=== PATIENT | female | born 1990 | race Caucasian/White ===

== ENCOUNTER 2017-11-29 22:56 | Emergency (ER) | payer OTHER ==
--- NOTE | 2017-11-29 23:17 | ED Physician Documentation ---
PD HPI ABD PAIN - Stated complaint Stated Complaint: ABDOMINAL CRAMPS - Chief complaint Chief Complaint: Abd Pain - History obtained from History obtained from: Patient - History of Present Illness Timing - onset: Today (this afternoon) Timing - details: Gradual onset Pain level now: 6 Quality: Pain Location: All over / everywhere Radiation: Lower back Improved by: Other (no ameliorating factors) Worsened by: Palpation Associated symptoms: Nausea, Vomiting. No: Fever, Diarrhea, Constipation Similar symptoms before: Has not had sx before Recently seen: Not recently seen Review of Systems Constitutional: denies: Fever, Chills, Sweats Cardiac: reports: Reviewed and negative Respiratory: reports: Reviewed and negative GI: reports: Abdominal Pain, Nausea, Vomiting. denies: Constipation, Diarrhea : denies: Dysuria, Frequency Musculoskeletal: reports: Back pain PD PAST MEDICAL HISTORY - Past Medical History Past Medical History: Yes CHHA: Endometriosis - Past Surgical History Past Surgical History: Yes General: Cholecystectomy, Other - Present Medications Home Medications: Ambulatory Orders Medication Instructions Recorded Confirmed Lactobacillus Acidophilus 11/29/17 [Probiotic Acidophilus] oxyCODONE/ACET 5/325 [Percocet 5 1 - 2 each PO Q6H PRN #10 tablet 11/30/17 mg/325 mg] - Allergies Allergies/Adverse Reactions: Allergies Allergy/AdvReac Type Severity Reaction Status Date / Time latex Allergy Itching Verified 11/29/17 23:05 Sulfa (Sulfonamide Allergy Anaphylaxis Verified 11/29/17 23:05 Antibiotics) - Social History Does the pt smoke?: No Smoking Status: Never smoker Does the pt drink ETOH?: No Does the pt have substance abuse?: No - Immunizations Immunizations are current?: Yes - POLST Patient has POLST: No PD ED PE NORMAL - Vitals Vital signs reviewed: Yes - General General: Alert and oriented X 3, Well developed/nourished, Other (appears uncomfortable due to pain) - HEENT HEENT: Moist mucous membranes - Neck Neck: Supple, no meningeal sign - Cardiac Cardiac: RRR, No murmur, No gallop, No rub - Respiratory Respiratory: No respiratory distress, Clear bilaterally - Abdomen Abdomen: Soft, Non distended, Other (diffuse TTP without rebound or guarding; she is crying even before my exam, it is difficult to assess whether she is worse from palpation) - Back Back: No CVA TTP - Derm Derm: Normal color, Warm and dry, No rash Results - Vitals Vitals: Vital Signs - 24 hr 11/29/17 11/29/17 11/29/17 23:00 23:37 23:42 Temperature 36.5 C Heart Rate 75 70 66 Respiratory 24 18 16 Rate Blood Pressure 108/98 H 120/63 120/63 O2 Saturation 99 98 97 11/29/17 11/30/17 23:52 01:33 Temperature Heart Rate 77 72 Respiratory 16 14 Rate Blood Pressure 117/73 100/70 O2 Saturation 96 100 Oxygen O2 Source Room air - Labs Labs: Laboratory Tests 11/29/17 11/29/17 11/29/17 23:05 23:10 23:10 WBC 6.6 RBC 4.31 Hgb 13.2 Hct 38.3 MCV 88.7 MCH 30.7 MCHC 34.6 RDW 13.4 Plt Count 275 MPV 8.5 Neut # 3.4 Lymph # 2.5 [place] # 0.5 Eos # 0.2 Baso # 0.0 Absolute Nucleated RBC 0.00 Nucleated RBC % 0.0 Sodium 137 Potassium 3.3 L Chloride 101 Carbon Dioxide 23 Anion Gap 13.0 BUN 16 Creatinine 0.8 Estimated GFR (MDRD) 85 L Glucose 110 H Calcium 9.5 Total Bilirubin 0.9 AST 20 ALT 17 Alkaline Phosphatase 31 L Total Protein 7.7 Albumin 4.8 Globulin 2.9 Albumin/Globulin Ratio 1.7 Lipase 26 Urine Color YELLOW Urine Clarity CLEAR Urine pH 5.5 Ur Specific [place] >=1.030 H Urine Protein NEGATIVE Urine Glucose (UA) NEGATIVE Urine Ketones 15 H Urine Occult Blood NEGATIVE Urine Nitrite NEGATIVE Urine Bilirubin NEGATIVE Urine Urobilinogen 0.2 (NORMAL) Ur Leukocyte Esterase NEGATIVE Ur Microscopic Review NOT INDICATED Urine Culture Comments NOT INDICATED Urine HCG, Qual NEGATIVE - Rads (name of study) CT A/P Radiology: Prelim report reviewed, See rad report PD MEDICAL DECISION MAKING - ED course Complexity details: reviewed results, re-evaluated patient, considered differential, d/w patient ED course: On reevaluation, patient reports significant improvement after IV fluids and IV dilaudid. Left ovarian cyst on CT, which, on reevaluation, she says is the predominant location of her pain. She says she has had ovarian cysts in the past. I explained that it is unclear whether this is causing her pain, or if this is a coincident finding. However, there are no findings to suggest another diagnosis. Departure - Departure Disposition: 01 Home, Self Care Clinical Impression: Cyst of ovary Qualifiers: Laterality: left Qualified Code(s): N83.202 - Unspecified ovarian cyst, left side Condition: Good Instructions: ED Abdominal Pain Unkn Cause, ED Cyst Ovarian Prescriptions: oxyCODONE/ACET 5/325 [Percocet 5 mg/325 mg] 1 - 2 each PO Q6H PRN #10 tablet PRN Reason: Pain Comments: Follow up with your weeder thinner this week; call to arrange for next available appointment. Discharge Date/Time: 11/30/17 01:57
[2017-11-29 23:23] LABS: BILIRUBIN,URINE NEGATIVE (NEGATIVE); GLUCOSE, URINE (UA) NEGATIVE (NEGATIVE); KETONES,URINE (UA) 15 mg/dL (NEGATIVE); LEUKOCYTE ESTERASE, URINE NEGATIVE (NEGATIVE); NITRITE,URINE NEGATIVE (NEGATIVE); OCCULT BLOOD,URINE NEGATIVE (NEGATIVE); PH,URINE 5.5 PH (5.0-7.5); PROTEIN,URINE NEGATIVE (NEGATIVE); UROBILINOGEN,URINE 0.2 (NORMAL) E.U./dL (NORMAL)
[2017-11-29] MEDS ORDERED: HYDROmorphone 1 MG/ML SYRINGE IVP STA (23:24)
[2017-11-29] MEDS ORDERED: ONDANSETRON 4 MG/2 ML VIAL IVP STA (23:24)
[2017-11-29] MEDS ORDERED: SODIUM CHLORIDE 0.9% 1,000 ML IV STA (23:24)
[2017-11-29 23:25] LABS: BASOPHILS % (AUTO) 0.7 %; EOSINOPHILS # (AUTO) 0.2 10^3/uL (0.0-0.7); EOSINOPHILS % (AUTO) 3.3 %; HGB - HEMOGLOBIN 13.2 g/dL (12.0-16.0); LYMPHOCYTES # (AUTO) 2.5 10^3/uL (1.5-3.5); LYMPHOCYTES % (AUTO) 37.6 %; MEAN CORPUSCULAR HEMOGLOBIN 30.7 pg (27.0-31.0); MEAN CORPUSCULAR HGB CONC 34.6 g/dL (32.0-36.0); MEAN CORPUSCULAR VOLUME 88.7 fL (81.0-99.0); MEAN PLATELET VOLUME 8.5 fL (7.9-10.8); MONOCYTES # (AUTO) 0.5 10^3/uL (0.0-1.0); MONOCYTES % (AUTO) 7.1 %; NEUTROPHILS # (AUTO) 3.4 10^3/uL (1.5-6.6); NEUTROPHILS % (AUTO) 51.3 %; PLT - PLATELET COUNT 275 10^3/uL (130-450); RED BLOOD COUNT 4.31 10^6/uL (4.20-5.40); RED CELL DISTRIBUTION WIDTH 13.4 % (12.0-15.0); WHITE BLOOD COUNT 6.6 x10^3/uL (4.8-10.8)
[2017-11-29 23:26] LABS: CLARITY,URINE CLEAR (CLEAR); HCG UR QUAL NEGATIVE
[2017-11-29 23:34] LABS: ALBUMIN 4.8 g/dL (3.2-5.5); ALBUMIN/GLOBULIN RATIO 1.7 (1.0-2.2); BILIRUBIN,TOTAL 0.9 mg/dL (0.2-1.0); CALCIUM 9.5 mg/dL (8.5-10.3); CREATININE 0.8 mg/dL (0.4-1.0); TOTAL PROTEIN 7.7 g/dL (6.7-8.2)
[2017-11-29] MEDS ORDERED: IOPAMIDOL-300 100 ML VIAL ONE (23:54)
[2017-11-30] MEDS ORDERED: IOPAMIDOL-300 100 ML VIAL IVP ONE (00:20)
--- NOTE | 2017-11-30 00:35 | CT Preliminary Report ---
Exam: CT ABDOMEN/PELVIS W/ IMPRESSION: 1. No acute inflammatory or obstructive process seen in the abdomen or pelvis. 2. Left ovarian 4.5 cm benign-appearing cyst. Doubt acute complication. This does not require sonogra phic follow-up per ACR criteria unless clinically indicated. 3. Moderate right colonic stool burden. 4. Previous cholecystectomy. [facility] SITE ID: [id number]
--- NOTE | 2017-11-30 00:39 | CT Report ---
EXAM: CT ABDOMEN AND PELVIS EXAM DATE: 11/30/2017 12:21 AM. CLINICAL HISTORY: Abdominal pain. COMPARISONS: None. TECHNIQUE: Routine helical CT imaging was performed through the abdomen and pelvis. IV contrast: 100 mL Isovue 300. Enteric contrast: No . Reconstructions: Coronal and sagittal. In accordance with CT protocol optimization, one or more of the following dose reduction techniques w ere utilized for this exam: automated exposure control, adjustment of mA and/or KV based on patient s ize, or use of iterative reconstructive technique. FINDINGS: Lung Bases: Unremarkable. Liver: Unremarkable. No suspicious masses. Gallbladder/Bile Ducts: Unremarkable post-cholecystectomy. Spleen: Unremarkable. Pancreas: Unremarkable. Adrenal Glands: Unremarkable. Kidneys: Unremarkable. No suspicious masses or hydronephrosis. Peritoneal Cavity/Bowel: No bowel obstruction or inflammatory process seen. No free air or significan t free fluid. No masses or adenopathy. The appendix is not seen but there is no evidence of appendici tis. Moderate right colonic stool burden. Pelvic Organs: Bladder, uterus, and adnexa appear unremarkable with exception of a 38 x 39 x 46 mm be nign-appearing left ovarian cyst and a much smaller right ovarian cyst. Doubt acute complication wit h no twisting of the vascular pedicle seen on either side. Vasculature: No aneurysms or other significant abnormality. Bones: No significant abnormality. Other: None. IMPRESSION: 1. No acute inflammatory or obstructive process seen in the abdomen or pelvis. 2. Left ovarian 4.5 cm benign-appearing cyst. Doubt acute complication. This does not require sonogra phic follow-up per ACR criteria unless clinically indicated. 3. Moderate right colonic stool burden. 4. Previous cholecystectomy. [facility] Referring Provider Line: [phone] SITE ID: [id number]
[2017-11-30 01:35] VITALS: BP 100/70
[2017-11-30] MEDS ORDERED: oxyCODONE/ACET 5/325 Prepack 4 PO STA (01:44)
== END 2017-11-30 01:57 | disposition home or self-care (01) ==
LOC: ED 22:56
DX: N83.202 Unspecified ovarian cyst, left side (principal)
CPT/HCPCS: 36415; 74177; 80053; 81003; 81025; 83690; 85025; 96361; 96374; 96375; 99284; J1170; Q9967; 81001; 87086

== ENCOUNTER 2018-01-20 04:29 | Emergency (ER) | payer OTHER ==
[2018-01-20] MEDS ORDERED: ONDANSETRON 4 MG/2 ML VIAL IVP STA (05:03)
[2018-01-20] MEDS ORDERED: SODIUM CHLORIDE 0.9% 1,000 ML IV ONE (05:03)
[2018-01-20 05:05] LABS: BASOPHILS % (AUTO) 0.2 %; EOSINOPHILS # (AUTO) 0.2 10^3/uL (0.0-0.7); EOSINOPHILS % (AUTO) 1.3 %; HGB - HEMOGLOBIN 13.2 g/dL (12.0-16.0); LYMPHOCYTES # (AUTO) 0.6 10^3/uL (1.5-3.5); LYMPHOCYTES % (AUTO) 4.6 %; MEAN CORPUSCULAR HEMOGLOBIN 29.9 pg (27.0-31.0); MEAN CORPUSCULAR HGB CONC 33.2 g/dL (32.0-36.0); MEAN CORPUSCULAR VOLUME 90.3 fL (81.0-99.0); MEAN PLATELET VOLUME 8.3 fL (7.9-10.8); MONOCYTES # (AUTO) 0.8 10^3/uL (0.0-1.0); MONOCYTES % (AUTO) 6.3 %; NEUTROPHILS # (AUTO) 11.4 10^3/uL (1.5-6.6); NEUTROPHILS % (AUTO) 87.6 %; PLT - PLATELET COUNT 264 10^3/uL (130-450); RED BLOOD COUNT 4.42 10^6/uL (4.20-5.40); RED CELL DISTRIBUTION WIDTH 13.4 % (12.0-15.0); WHITE BLOOD COUNT 13.1 x10^3/uL (4.8-10.8)
[2018-01-20 05:14] LABS: ALBUMIN 4.3 g/dL (3.2-5.5); ALBUMIN/GLOBULIN RATIO 1.5 (1.0-2.2); BILIRUBIN,TOTAL 0.4 mg/dL (0.2-1.0); CALCIUM 8.2 mg/dL (8.5-10.3); CREATININE 0.7 mg/dL (0.4-1.0); TOTAL PROTEIN 7.1 g/dL (6.7-8.2)
[2018-01-20] MEDS ORDERED: ONDANSETRON 4 MG/2 ML VIAL ONE (05:14)
--- NOTE | 2018-01-20 05:30 | ED Physician Documentation ---
PD HPI NVD - Stated complaint Stated Complaint: VOMITING - Chief complaint Chief Complaint: Abd Pain - History obtained from History obtained from: Patient, Family - History of Present Illness Timing - onset: Enter time (1000), Yesterday Timing - duration: Days (1) Timing - details: Gradual onset, Still present Associated symptoms: Abdominal pain, Loss of appetite Contributing factors: Bad food Improved by: Laying still Similar symptoms before: Has not had sx before Recently seen: Not recently seen - Additonal information Additional information: 27-year-old female with a history of endometriosis has developed acute diarrheal illness yesterday morning after eating at [employer]. She has not had anything to eat the rest of the day and about 10 PM she developed vomiting as well she has had uncontrolled vomiting throughout the night. She has not been able to sleep and she has had vomiting as frequently as every 5-10 minutes. She has some soreness to her ribs from all of the retching. 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 - Past Surgical History Past Surgical History: Yes General: Cholecystectomy, Other - Present Medications Home Medications: Ambulatory Orders Medication Instructions Recorded Confirmed Lactobacillus Acidophilus 11/29/17 [Probiotic Acidophilus] oxyCODONE/ACET 5/325 [Percocet 5 1 - 2 each PO Q6H PRN #10 tablet 11/30/1701/20 mg/325 mg] Fluticasone [Flonase] 1 sprays NS DAILY 01/20/18 01/20/18 Ondansetron Odt [Zofran] 4 mg TL Q6H PRN #10 tablet 01/20/18 - Allergies Allergies/Adverse Reactions: Allergies Allergy/AdvReac Type Severity Reaction Status Date / Time latex Allergy Itching Verified 01/20/18 04:38 Sulfa (Sulfonamide Allergy Anaphylaxis Verified 01/20/18 04:38 Antibiotics) - Social History Does the pt smoke?: No Smoking Status: Never smoker Does the pt drink ETOH?: No Does the pt have substance abuse?: No - Immunizations Immunizations are current?: Yes - POLST Patient has POLST: No PD ED PE NORMAL - Vitals Vital signs reviewed: Yes (tachy and diastolic hypertension ) - General General: Alert and oriented X 3, No acute distress, Well developed/nourished - HEENT HEENT: Atraumatic, PERRL, EOMI - Neck Neck: Supple, no meningeal sign, No bony TTP - Cardiac Cardiac: No murmur, Other (tachy and regular ) - Respiratory Respiratory: No respiratory distress, Clear bilaterally - Abdomen Abdomen: Soft, Other (epigastric and lower rib pain to palpation. There is lower abdominal pain over the pelvic brim bilaterally that she states is her chronic endometrial pain. ) - Back Back: No CVA TTP, No spinal TTP - Derm Derm: Normal color, Warm and dry, No rash - Extremities Extremities: No deformity, No edema - Neuro Neuro: Alert and oriented X 3, No motor deficit, No sensory deficit, Normal speech Eye Opening: Spontaneous Motor: Obeys Commands Verbal: Oriented GCS Score: 15 - Psych Psych: Normal mood, Normal affect Results - Vitals Vitals: Vital Signs - 24 hr 01/20/18 01/20/18 01/20/18 04:30 05:20 05:50 Temperature 36.2 C L 37.0 C Heart Rate 101 H 91 98 Respiratory 18 18 17 Rate Blood Pressure 105/81 H 129/85 H 123/79 O2 Saturation 98 100 100 01/20/18 01/20/18 06:08 06:48 Temperature 36.3 C L Heart Rate 94 87 Respiratory 16 16 Rate Blood Pressure 116/72 121/85 H O2 Saturation 96 99 Oxygen O2 Source Room air - Labs Labs: Laboratory Tests 01/20/18 01/20/18 01/20/18 04:54 04:54 06:45 WBC 13.1 H RBC 4.42 Hgb 13.2 Hct 39.9 MCV 90.3 MCH 29.9 MCHC 33.2 RDW 13.4 Plt Count 264 MPV 8.3 Neut # 11.4 H Lymph # 0.6 L [place] # 0.8 Eos # 0.2 Baso # 0.0 Absolute Nucleated RBC 0.00 Nucleated RBC % 0.0 Sodium 138 Potassium 3.6 Chloride 107 Carbon Dioxide 25 Anion Gap 6.0 BUN 20 Creatinine 0.7 Estimated GFR (MDRD) 99 Glucose 110 H Calcium 8.2 L Total Bilirubin 0.4 AST 17 ALT 21 Alkaline Phosphatase 34 L Total Protein 7.1 Albumin 4.3 Globulin 2.8 Albumin/Globulin Ratio 1.5 Lipase 29 Urine Color YELLOW Urine Clarity CLEAR Urine pH 5.5 Ur Specific [place] >=1.030 H Urine Protein NEGATIVE Urine Glucose (UA) NEGATIVE Urine Ketones NEGATIVE Urine Occult Blood NEGATIVE Urine Nitrite NEGATIVE Urine Bilirubin NEGATIVE Urine Urobilinogen 0.2 (NORMAL) Ur Leukocyte Esterase NEGATIVE Ur Microscopic Review NOT INDICATED Urine HCG, Qual 01/20/18 06:45 WBC RBC Hgb Hct MCV MCH MCHC RDW Plt Count MPV Neut # Lymph # [place] # Eos # Baso # Absolute Nucleated RBC Nucleated RBC % Sodium Potassium Chloride Carbon Dioxide Anion Gap BUN Creatinine Estimated GFR (MDRD) Glucose Calcium Total Bilirubin AST ALT Alkaline Phosphatase Total Protein Albumin Globulin Albumin/Globulin Ratio Lipase Urine Color Urine Clarity Urine pH Ur Specific [place] >=1.030 H Urine Protein Urine Glucose (UA) Urine Ketones Urine Occult Blood Urine Nitrite Urine Bilirubin Urine Urobilinogen Ur Leukocyte Esterase Ur Microscopic Review Urine HCG, Qual NEGATIVE Procedures - IVC sono (time) 0525 Bedside IVC sono: IVC measures (cm) (1.07), IVC collapsed c insp (cm) (complete) , Dehydration (mild est 1 liter.) PD MEDICAL DECISION MAKING - ED course Complexity details: reviewed old records, reviewed results, re-evaluated patient , considered differential, d/w patient, d/w family ED course: 27 y/o female with acute vomiting and diarrhea has prompt improvement with IV zofran. She is found to be dehydrated by interrogation of the IVC and she is administered saline as well. Departure - Departure Disposition: 01 Home, Self Care Clinical Impression: Gastroenteritis Condition: Stable Instructions: ED Gastroenteritis Viral Follow-Up: CURT Mcclain [Provider Group] Prescriptions: Ondansetron Odt [Zofran] 4 mg TL Q6H PRN #10 tablet PRN Reason: Nausea / Vomiting
[2018-01-20] MEDS ORDERED: HYDROmorphone 1 MG/ML CARPUJECT IVP STA (05:48)
[2018-01-20 06:49] VITALS: BP 121/85
[2018-01-20 06:58] LABS: BILIRUBIN,URINE NEGATIVE (NEGATIVE); GLUCOSE, URINE (UA) NEGATIVE (NEGATIVE); KETONES,URINE (UA) NEGATIVE (NEGATIVE); LEUKOCYTE ESTERASE, URINE NEGATIVE (NEGATIVE); NITRITE,URINE NEGATIVE (NEGATIVE); OCCULT BLOOD,URINE NEGATIVE (NEGATIVE); PH,URINE 5.5 PH (5.0-7.5); PROTEIN,URINE NEGATIVE (NEGATIVE); UROBILINOGEN,URINE 0.2 (NORMAL) E.U./dL (NORMAL)
[2018-01-20 06:59] LABS: CLARITY,URINE CLEAR (CLEAR); HCG UR QUAL NEGATIVE
== END 2018-01-20 07:37 | disposition home or self-care (01) ==
LOC: ED 04:29
DX: K52.9 Noninfective gastroenteritis and colitis, unspecified (principal); E86.0 Dehydration; Z87.42 Personal history of other diseases of the female genital tract
CPT/HCPCS: 36415; 80053; 81003; 81025; 83690; 85025; 96361; 96374; 96375; 99284; J1170; 81001

== ENCOUNTER 2018-05-28 15:47 | Emergency (ER) | payer OTHER ==
[2018-05-28] MEDS ORDERED: SODIUM CHLORIDE 0.9% 1,000 ML IV ONE (17:18)
[2018-05-28] MEDS ORDERED: ONDANSETRON 4 MG/2 ML VIAL IVP STA (17:18)
[2018-05-28] MEDS ORDERED: IOPAMIDOL-300 100 ML VIAL ONE (17:20)
[2018-05-28 17:32] LABS: BASOPHILS % (AUTO) 0.4 %; EOSINOPHILS # (AUTO) 0.4 10^3/uL (0.0-0.7); EOSINOPHILS % (AUTO) 7.7 %; HGB - HEMOGLOBIN 12.6 g/dL (12.0-16.0); LYMPHOCYTES # (AUTO) 1.4 10^3/uL (1.5-3.5); MEAN CORPUSCULAR HEMOGLOBIN 30.7 pg (27.0-31.0); MEAN CORPUSCULAR HGB CONC 33.9 g/dL (32.0-36.0); MEAN CORPUSCULAR VOLUME 90.6 fL (81.0-99.0); MONOCYTES # (AUTO) 0.3 10^3/uL (0.0-1.0); MONOCYTES % (AUTO) 6.5 %; NEUTROPHILS # (AUTO) 2.8 10^3/uL (1.5-6.6); NEUTROPHILS % (AUTO) 57.4 %; PLT - PLATELET COUNT 247 10^3/uL (130-450); RED BLOOD COUNT 4.11 10^6/uL (4.20-5.40); RED CELL DISTRIBUTION WIDTH 12.9 % (12.0-15.0); WHITE BLOOD COUNT 4.9 x10^3/uL (4.8-10.8)
[2018-05-28] MEDS: HYDROmorphone 1 MG/ML CARPUJECT IVP STA (17:38)
[2018-05-28 17:45] LABS: ALBUMIN 4.1 g/dL (3.2-5.5); ALBUMIN/GLOBULIN RATIO 1.3 (1.0-2.2); BILIRUBIN,TOTAL 1.1 mg/dL (0.2-1.0); CALCIUM 8.9 mg/dL (8.5-10.3); CREATININE 0.7 mg/dL (0.4-1.0); TOTAL PROTEIN 7.2 g/dL (6.7-8.2)
[2018-05-28] MEDS ORDERED: IOPAMIDOL-300 100 ML VIAL IVP ONE (18:21)
--- NOTE | 2018-05-28 18:52 | CT Report ---
Reason: increased abdominal pain Procedure Date: 05/28/2018 Accession Number: [id number] / [id number] Procedure: CT - Abdomen/Pelvis W/ CPT Code: FULL RESULT: EXAM: CT ABDOMEN AND PELVIS EXAM DATE: 05/28/2018 06:20 PM. CLINICAL HISTORY: Hysterectomy 05/24/2018. Abdominal pain. Unable to have bowel movement. No trauma. COMPARISONS: CT of the abdomen and pelvis with contrast 11/30/2017. TECHNIQUE: Routine helical CT imaging was performed through the abdomen and pelvis. IV contrast: 100 mL Isovue 300. Enteric contrast: No. Reconstructions: Coronal and sagittal. In accordance with CT protocol optimization, one or more of the following dose reduction techniques were utilized for this exam: automated exposure control, adjustment of mA and/or KV based on patient size, or use of iterative reconstructive technique. FINDINGS: Lung Bases: Unremarkable. Liver: The dome of the liver is incompletely included on the exam. Imaged portion is unremarkable, specifically without suspicious focal lesion. Gallbladder/Bile Ducts: Post cholecystectomy. No abnormal biliary ductal dilatation. Spleen: Normal. Pancreas: Normal. Adrenal Glands: Normal. Kidneys: Normal. No masses or hydronephrosis. Peritoneal Cavity/Bowel: Small amount of pneumoperitoneum predominating in the upper abdomen, not unexpected given history of recent hysterectomy. Minimal free fluid in the pelvis, likely postsurgical. No rim-enhancing fluid collection to suggest abscess. Stomach and small bowel are unremarkable, specifically without evidence of inflammation or obstruction. Appendix not seen but no secondary signs of acute appendicitis. The colon is minimally dilated throughout its course with liquid stool present proximally and semi-formed stool present in the distal descending colon through rectum with gas present at the rectal vault. No evidence of a mass, inflammation or obstruction by imaging. No significant stool ball at the rectal vault. Pelvic Organs: Trace gas within the urinary bladder, possibly postsurgical depending on timing. Alternatively finding could be due to a nonvisualized fistula. Query recent catheterization. Postsurgical changes in the pelvis in keeping with hysterectomy. The ovaries are not discretely visualized but no adnexal mass demonstrated. Vasculature: No aneurysms or other significant abnormality. Bones: No significant abnormality. Other: Gas within the abdominal wall at the umbilicus and right lower quadrant, likely related to recent trocar placement and surgery. No evidence of abdominal wall abscess or hematoma. IMPRESSION: 1. Predominantly liquid stool present throughout the minimally dilated colon without evidence of mass, stricture or other cause of obstruction. No significant stool at the rectal vault. Finding likely due to ileus given recent surgery. No evidence of a small bowel obstruction. 2. Trace gas within the urinary bladder, possibly due to recent instrumentation. However, a nonvisualized fistula could also cause this appearance. 3. Small volume pneumoperitoneum and trace free fluid in keeping with recent surgery. No evidence of abscess. [facility] The above findings were discussed with Parviz Manning by Dr. Francisco Flood at 18:50 hrs on 05/28/18.
[2018-05-28 20:23] LABS: BILIRUBIN,URINE NEGATIVE (NEGATIVE); GLUCOSE, URINE (UA) NEGATIVE (NEGATIVE); KETONES,URINE (UA) NEGATIVE (NEGATIVE); LEUKOCYTE ESTERASE, URINE NEGATIVE (NEGATIVE); NITRITE,URINE NEGATIVE (NEGATIVE); OCCULT BLOOD,URINE NEGATIVE (NEGATIVE); PROTEIN,URINE NEGATIVE (NEGATIVE); UROBILINOGEN,URINE 0.2 (NORMAL) E.U./dL (NORMAL)
[2018-05-28 20:26] LABS: CLARITY,URINE CLEAR (CLEAR)
[2018-05-28] MEDS ORDERED: ACETAMINOPHEN 500 MG TABLET PO STA (21:38)
[2018-05-28] MEDS ORDERED: KETOROLAC 60 MG/2 ML VIAL IVP STA (21:38)
[2018-05-28 22:03] VITALS: BP 129/70
--- NOTE | 2018-05-28 22:22 | ED Physician Documentation ---
PD HPI ABD PAIN - Stated complaint Stated Complaint: FEMALE - Chief complaint Chief Complaint: Abd Pain - Additional information Additional information: 27-year-old female presents the emergency department with increasing generalized abdominal pain and No bowel movements since her surgery on Thursday. The patient is status post a complete hysterectomy secondary to endometriosis. Since returning home the patient has not had a bowel movement and has had increasing abdominal pain and nausea. The patient has been taking her bowel regiment as prescribed. No focal area of pain. No fevers or chills. The patient is nauseous but no vomiting and has had decreased oral intake. No other associated symptoms. Review of Systems Constitutional: reports: Chills, Fatigue. denies: Fever Eyes: denies: Discharge Ears: denies: Ear pain Nose: denies: Congestion Throat: denies: Sore throat Cardiac: denies: Chest pain / pressure Respiratory: denies: Dyspnea GI: reports: Abdominal Pain, Nausea, Constipation : denies: Dysuria Skin: denies: Rash Musculoskeletal: denies: Neck pain Neurologic: denies: Generalized weakness, Altered mental status Immunocompromised: denies: Chemotherapy PD PAST MEDICAL HISTORY - Past Medical History REPA[employer]: Endometriosis - Past Surgical History Past Surgical History: Yes General: Cholecystectomy, Other - Present Medications Home Medications: Ambulatory Orders Medication Instructions Recorded Confirmed Lactobacillus Acidophilus 11/29/17 [Probiotic Acidophilus] oxyCODONE/ACET 5/325 [Percocet 5 1 - 2 each PO Q6H PRN #10 tablet 11/30/1701/20 mg/325 mg] Fluticasone [Flonase] 1 sprays NS DAILY 01/20/18 01/20/18 Ondansetron Odt [Zofran] 4 mg TL Q6H PRN #10 tablet 01/20/18 - Allergies Allergies/Adverse Reactions: Allergies Allergy/AdvReac Type Severity Reaction Status Date / Time banana Allergy Respiratory Verified 05/28/18 16:18 latex Allergy Itching Verified 01/20/18 04:38 Sulfa (Sulfonamide Allergy Anaphylaxis Verified 01/20/18 04:38 Antibiotics) - Social History Does the pt smoke?: No Smoking Status: Never smoker Does the pt drink ETOH?: No Does the pt have substance abuse?: No - Immunizations Immunizations are current?: Yes - POLST Patient has POLST: No PD ED PE NORMAL - General General: Alert and oriented X 3, No acute distress - HEENT HEENT: Atraumatic, PERRL, EOMI, Ears normal - Neck Neck: Supple, no meningeal sign - Cardiac Cardiac: RRR, Strong equal pulses - Respiratory Respiratory: No respiratory distress, Clear bilaterally - Abdomen Abdomen: Soft. No: Non tender (The patient has generalized tenderness, mild distention. No rebound or peritoneal signs), Non distended - Derm Derm: Normal color, No rash - Extremities Extremities: No deformity, No edema - Neuro Neuro: Alert and oriented X 3, Normal speech - Psych Psych: Normal affect Results - Vitals Vitals: Vital Signs - 24 hr 05/28/18 05/28/18 05/28/18 16:13 18:52 20:13 Temperature 36.9 C 36.9 C 36.4 C L Heart Rate 88 66 77 Respiratory 16 16 18 Rate Blood Pressure 128/78 117/80 122/86 H O2 Saturation 98 98 97 05/28/18 22:02 Temperature 36.2 C L Heart Rate 75 Respiratory 12 Rate Blood Pressure 129/70 O2 Saturation 100 Oxygen O2 Source Room air - Labs Labs: Laboratory Tests 05/28/18 05/28/18 05/28/18 17:25 17:25 Unknown WBC 4.9 RBC 4.11 L Hgb 12.6 Hct 37.2 MCV 90.6 MCH 30.7 MCHC 33.9 RDW 12.9 Plt Count 247 MPV 8.0 Neut # (Auto) 2.8 Lymph # (Auto) 1.4 L [place] # (Auto) 0.3 Eos # (Auto) 0.4 Baso # (Auto) 0.0 Absolute Nucleated RBC 0.00 Nucleated RBC % 0.0 Sodium 137 Potassium 3.9 Chloride 100 L Carbon Dioxide 30 Anion Gap 7.0 BUN 9 Creatinine 0.7 Estimated GFR (MDRD) 99 Glucose 91 Calcium 8.9 Total Bilirubin 1.1 H AST 70 H ALT 92 H Alkaline Phosphatase 66 Total Protein 7.2 Albumin 4.1 Globulin 3.1 Albumin/Globulin Ratio 1.3 Lipase 34 Urine Color YELLOW Urine Clarity CLEAR Urine pH 8.0 H Ur Specific [place] 1.010 Urine Protein NEGATIVE Urine Glucose (UA) NEGATIVE Urine Ketones NEGATIVE Urine Occult Blood NEGATIVE Urine Nitrite NEGATIVE Urine Bilirubin NEGATIVE Urine Urobilinogen 0.2 (NORMAL) Ur Leukocyte Esterase NEGATIVE Ur Microscopic Review NOT INDICATED Urine Culture Comments NOT INDICATED - Rads (name of study) CT abd/pelvis Radiology: Final report received (IMPRESSION: 1. Predominantly liquid stool present throughout the minimally dilated colon without evidence of mass, stricture or other cause of obstruction. No significant stool at the rectal vault. Finding likely due to ileus given recent surgery. No evidence of a small bowel obstruction 2. Trace gas within the urinary bladder, possibly due to recent instrumentation. However, a nonvisualized fistula could also cause this appearance. 3. Small volume pneumoperitoneum and trace free fluid in keeping with recent surgery. No evidence of abscess. ) PD MEDICAL DECISION MAKING - ED course ED course: The case was discussed with the patient's surgeon from [place] Dr. Yung. I discussed with him the patient's presentation and CT findings. Currently, he does not feel that this represents a fistula and would be too early for fistula. The patient reports that he put Surgicel in that area and that most likely is the surgical finding. He will follow the patient up as an outpatient. Regarding the obstipation he agrees with the plan for admission. Currently, he sees no indication for any surgical intervention The case was discussed with the hospitalist Dr. Rosario who after reviewing the patient's workup refuses to admission to our hospital because she feels that the patient is a postoperative complication and not appropriate first facility. During the patient's hospital course she improved and had multiple bowel movements, the patient was tolerating fluids and food. Currently, since the patient's ileus seems to have resolved transfer to [place] does not seem appropriate. The patient probably would still benefit from observation but the hospitalist has declined this. The patient will be discharged home. I discussed warning signs and recommended returning to the emergency department immediately for worsening or any concerns. - Sepsis Event Vital Signs: Vital Signs - 24 hr 05/28/18 05/28/18 05/28/18 16:13 18:52 20:13 Temperature 36.9 C 36.9 C 36.4 C L Heart Rate 88 66 77 Respiratory 16 16 18 Rate Blood Pressure 128/78 117/80 122/86 H O2 Saturation 98 98 97 05/28/18 22:02 Temperature 36.2 C L Heart Rate 75 Respiratory 12 Rate Blood Pressure 129/70 O2 Saturation 100 Oxygen O2 Source Room air Departure - Departure Disposition: 01 Home, Self Care Clinical Impression: Obstipation, Abnormal CT of the abdomen Abdominal pain Qualifiers: Abdominal location: unspecified location Qualified Code(s): R10.9 - Unspecified abdominal pain Condition: Good Instructions: Abdominal Pain, ED Constipation Follow-Up: Calixto Yung MD [Physician No Access] - Comments: Please follow-up with your HEALTH UNDERWRITER for further workup of the findings seen on CT scan. Please return to the emergency department immediately for worsening or any concerns. Discharge Date/Time: 05/28/18 22:54
== END 2018-05-28 22:54 | disposition home or self-care (01) ==
LOC: ED 15:47
DX: K59.00 Constipation, unspecified (principal); R10.9 Unspecified abdominal pain; R93.5 Abnormal findings on diagnostic imaging of other abdominal regions, including retroperitoneum
CPT/HCPCS: 36415; 74177; 80053; 81003; 83690; 85025; 96361; 96374; 96375; 99283; 99284; A9270; J1170; Q9967; 81001; 87086

== ENCOUNTER 2018-05-31 09:51 | Emergency (ER) | payer OTHER ==
--- NOTE | 2018-05-31 11:04 | ED Physician Documentation ---
PD HPI ABD PAIN - Stated complaint Stated Complaint: FEVER,ABD PX, DIZZY-STATUS POST SURGERY - Chief complaint Chief Complaint: General - History obtained from History obtained from: Patient - History of Present Illness Timing - onset: Last night (surgery a week ago and was having some pelvic pains and continued vaginal bleeding. Had had constipation which is improved. Had increased pelvic pain last night into today, some dysuria, and fever last night. No redness nor discharge at the abd incision sites.), Yesterday Timing - details: Gradual onset, Waxing and waning Quality: Cramping, Aching, Pain Location: Suprapubic, LLQ Radiation: Lower back Improved by: No: Eating Worsened by: Moving, Palpation. No: Eating, Breathing Associated symptoms: Fever, Nausea, Dysuria, Vaginal bleeding. No: Hematemesis , Melena, Hematochezia, Hematuria, Vaginal dc Recently seen: Emergency Dept (2 days ago, with labs and CT done, without acute findings (suggestion of a fistula to bladder vs postop residual air.), Surgery Review of Systems Constitutional: reports: Fever (100.8 last night; no fever today.), Fatigue. denies: Chills, Myalgias Nose: denies: Rhinorrhea / runny nose, Congestion Throat: denies: Sore throat Respiratory: denies: Cough GI: reports: Abdominal Pain (lower abd), Nausea, Constipation (few days ago but has had BMs since having stool softeners/laxatives.). denies: Vomiting, Diarrhea : reports: Dysuria (since yesterday), Vaginal bleeding (since surgery a week ago). denies: Frequency, Discharge Skin: denies: Rash, Lesions Musculoskeletal: denies: Neck pain, Back pain PD PAST MEDICAL HISTORY - Past Medical History Cardiovascular: None Respiratory: None Neuro: None PSYCH ARNP: Endometriosis - Past Surgical History Past Surgical History: Yes General: Cholecystectomy, Other - Present Medications Home Medications: Ambulatory Orders Medication Instructions Recorded Confirmed Lactobacillus Acidophilus 11/29/17 [Probiotic Acidophilus] oxyCODONE/ACET 5/325 [Percocet 5 1 - 2 each PO Q6H PRN #10 tablet 11/30/1701/20 mg/325 mg] Fluticasone [Flonase] 1 sprays NS DAILY 01/20/18 01/20/18 Ondansetron Odt [Zofran] 4 mg TL Q6H PRN #10 tablet 01/20/18 Naproxen [Naprosyn] 500 mg PO BID #20 tablet 05/31/18 Ondansetron HCl [Zofran] 4 mg PO Q6H PRN #20 tablet 05/31/18 - Allergies Allergies/Adverse Reactions: Allergies Allergy/AdvReac Type Severity Reaction Status Date / Time banana Allergy Respiratory Verified 05/28/18 16:18 latex Allergy Itching Verified 01/20/18 04:38 Sulfa (Sulfonamide Allergy Anaphylaxis Verified 01/20/18 04:38 Antibiotics) - Social History Does the pt smoke?: No Smoking Status: Never smoker Does the pt drink ETOH?: No Does the pt have substance abuse?: No - Immunizations Immunizations are current?: Yes - POLST Patient has POLST: No PD ED PE NORMAL - Vitals Vital signs reviewed: Yes - General General: Alert and oriented X 3, Well developed/nourished, Other (appears uncomfortable. ) - HEENT HEENT: Pharynx benign - Neck Neck: Supple, no meningeal sign, No adenopathy - Cardiac Cardiac: RRR, No murmur - Respiratory Respiratory: Clear bilaterally - Abdomen Abdomen: Normal bowel sounds, Soft, Non distended, No organomegaly, Other ( tender suprapubic and lower abd without percussion nor rebound tenderness. ) - Female Female : Deferred - Rectal Rectal: Deferred - Back Back: No CVA TTP - Derm Derm: Normal color, Warm and dry - Extremities Extremities: No deformity, No tenderness to palpate, Normal ROM s pain, No edema , No calf tenderness / cord - Neuro Neuro: Alert and oriented X 3, No motor deficit, Normal speech Results - Vitals Vitals: Oxygen O2 Source Room air - Labs Labs: Microbiology 05/31/18 10:50 Urine Culture - Final Urine,Clean Catch 10-50,000 COLONIES/ML Polymicrobial growth including potential pathogens. This is suggestive of skin or other contamination. Laboratory Tests 05/31/18 05/31/18 05/31/18 10:50 12:00 12:00 WBC 9.8 RBC 3.97 L Hgb 12.2 Hct 35.8 L MCV 90.0 MCH 30.6 MCHC 34.0 RDW 12.9 Plt Count 248 MPV 8.3 Neut # (Auto) 8.1 H Lymph # (Auto) 0.7 L [place] # (Auto) 0.5 Eos # (Auto) 0.4 Baso # (Auto) 0.0 Absolute Nucleated RBC 0.00 Nucleated RBC % 0.0 Sodium 134 L Potassium 3.7 Chloride 98 L Carbon Dioxide 25 Anion Gap 11.0 BUN 13 Creatinine 0.8 Estimated GFR (MDRD) 85 L Glucose 92 Lactic Acid Calcium 9.0 Total Bilirubin 1.0 AST 32 ALT 125 H Alkaline Phosphatase 90 Total Protein 7.5 Albumin 4.1 Globulin 3.4 Albumin/Globulin Ratio 1.2 Lipase 33 Urine Color YELLOW Urine Clarity CLEAR Urine pH 6.0 Ur Specific [place] 1.010 Urine Protein NEGATIVE Urine Glucose (UA) NEGATIVE Urine Ketones NEGATIVE Urine Occult Blood TRACE-LYSE Urine Nitrite NEGATIVE Urine Bilirubin NEGATIVE Urine Urobilinogen 0.2 (NORMAL) Ur Leukocyte Esterase TRACE H Urine RBC 0-5 Urine WBC 0-3 Ur Squamous Epith Cells FEW Squamous Urine Bacteria Rare Ur Microscopic Review INDICATED Urine Culture Comments INDICATED 05/31/18 12:00 WBC RBC Hgb Hct MCV MCH MCHC RDW Plt Count MPV Neut # (Auto) Lymph # (Auto) [place] # (Auto) Eos # (Auto) Baso # (Auto) Absolute Nucleated RBC Nucleated RBC % Sodium Potassium Chloride Carbon Dioxide Anion Gap BUN Creatinine Estimated GFR (MDRD) Glucose Lactic Acid 0.8 Calcium Total Bilirubin AST ALT Alkaline Phosphatase Total Protein Albumin Globulin Albumin/Globulin Ratio Lipase Urine Color Urine Clarity Urine pH Ur Specific [place] Urine Protein Urine Glucose (UA) Urine Ketones Urine Occult Blood Urine Nitrite Urine Bilirubin Urine Urobilinogen Ur Leukocyte Esterase Urine RBC Urine WBC Ur Squamous Epith Cells Urine Bacteria Ur Microscopic Review Urine Culture Comments - Rads (name of study) pelvic U/S Radiology: Prelim report reviewed (no free fluid. No reproductive structures. ) PD MEDICAL DECISION MAKING - ED course Complexity details: reviewed results (no signs of internal fluid/free fluid, and normal labs, afebrile. ), re-evaluated patient (improved symptoms), considered differential, d/w patient, d/w PMD (Dr. Seo, PSYCH ARNP, who was satisfied with tests, and will see patient this week in office for follow up. ) - Sepsis Event Vital Signs: Oxygen O2 Source Room air Departure - Departure Disposition: 01 Home, Self Care Clinical Impression: Status post hysterectomy with oophorectomy, Pelvic pain Record reviewed to determine appropriate education?: Yes Follow-Up: Calixto Seo MD [Physician No Access] - Prescriptions: Naproxen [Naprosyn] 500 mg PO BID #20 tablet Ondansetron HCl [Zofran] 4 mg PO Q6H PRN #20 tablet PRN Reason: Nausea / Vomiting Comments: There is no signs of infection or internal bleeding based on your tests right now. There is not an obvious urinary tract infection based on the initial test. The culture will result in 2-3 days. I talked with Dr. seo who would like to add some anti-inflammatories regularly. Regarding the pain you can continue with the oxycodone you have or if that seems to stronger sedating then use tramadol or your previous hydrocodone. Continue with stool softener daily such as docusate. Add ondansetron if needed for nausea. Follow-up with Dr. seo in the next several days, call tomorrow or later today for follow-up appointment if you do not have one scheduled already. Discharge Date/Time: 05/31/18 15:25
[2018-05-31 11:13] LABS: BILIRUBIN,URINE NEGATIVE (NEGATIVE); GLUCOSE, URINE (UA) NEGATIVE (NEGATIVE); KETONES,URINE (UA) NEGATIVE (NEGATIVE); LEUKOCYTE ESTERASE, URINE TRACE (NEGATIVE); NITRITE,URINE NEGATIVE (NEGATIVE); OCCULT BLOOD,URINE TRACE-LYSE (NEGATIVE); PROTEIN,URINE NEGATIVE (NEGATIVE); UROBILINOGEN,URINE 0.2 (NORMAL) E.U./dL (NORMAL)
[2018-05-31 11:14] LABS: CLARITY,URINE CLEAR (CLEAR)
[2018-05-31 11:27] LABS: BACTERIA,URINE Rare /HPF (None Seen); RBC,URINE 0-5 /HPF (0-5); SQUAMOUS EPITHELIAL CELL,UR FEW Squamous (<= Few)
[2018-05-31] MEDS ORDERED: SODIUM CHLORIDE 0.9% 1,000 ML IV ONE (11:45)
[2018-05-31] MEDS ORDERED: KETOROLAC 60 MG/2 ML VIAL IVP STA (11:45)
[2018-05-31] MEDS ORDERED: ONDANSETRON 4 MG/2 ML VIAL IVP STA (11:57)
[2018-05-31] MEDS ORDERED: MORPHINE 10 MG/ML VIAL IVP STA (11:58)
[2018-05-31 12:15] LABS: BASOPHILS % (AUTO) 0.3 %; EOSINOPHILS # (AUTO) 0.4 10^3/uL (0.0-0.7); EOSINOPHILS % (AUTO) 4.2 %; HGB - HEMOGLOBIN 12.2 g/dL (12.0-16.0); LYMPHOCYTES # (AUTO) 0.7 10^3/uL (1.5-3.5); LYMPHOCYTES % (AUTO) 6.9 %; MEAN CORPUSCULAR HEMOGLOBIN 30.6 pg (27.0-31.0); MEAN PLATELET VOLUME 8.3 fL (7.9-10.8); MONOCYTES # (AUTO) 0.5 10^3/uL (0.0-1.0); MONOCYTES % (AUTO) 5.4 %; NEUTROPHILS # (AUTO) 8.1 10^3/uL (1.5-6.6); NEUTROPHILS % (AUTO) 83.2 %; PLT - PLATELET COUNT 248 10^3/uL (130-450); RED BLOOD COUNT 3.97 10^6/uL (4.20-5.40); RED CELL DISTRIBUTION WIDTH 12.9 % (12.0-15.0); WHITE BLOOD COUNT 9.8 x10^3/uL (4.8-10.8)
[2018-05-31 12:25] LABS: ALBUMIN 4.1 g/dL (3.2-5.5); ALBUMIN/GLOBULIN RATIO 1.2 (1.0-2.2); CREATININE 0.8 mg/dL (0.4-1.0); TOTAL PROTEIN 7.5 g/dL (6.7-8.2)
--- NOTE | 2018-05-31 13:38 | Ultrasound Report ---
Reason: post hysterectomy, pain in pelvic Procedure Date: 05/31/2018 Accession Number: [id number] / [id number] Procedure: US - Pelvic Complete CPT Code: FULL RESULT: EXAM: PELVIC ULTRASOUND EXAM DATE: 05/31/2018 01:22 PM. CLINICAL HISTORY: Hysterectomy and bilateral oophorectomy with abdominal pelvic pain. COMPARISON: ABDOMEN/PELVIS W/ 05/28/2018. TECHNIQUE: Realtime transabdominal pelvic scan performed to identify the uterus and adnexa and as an overview of other pelvic structures, followed by transvaginal scan to provide greater detail of the uterus and adnexa, with static image documentation. FINDINGS: The uterus and ovaries are absent consistent with the reported surgical history. No abnormal fluid collection is seen within the elbow this. No upper abdominal free fluid in the right and left upper quadrant. Urinary bladder appears unremarkable. IMPRESSION: 1. No free fluid visualized. Absent uterus and ovaries. No positive ultrasound finding to explain symptoms of pain.
[2018-05-31] MEDS ORDERED: HYDROmorphone 1 MG/ML CARPUJECT IVP STA (13:54)
[2018-05-31] MEDS ORDERED: DEXAMETHASONE 10 MG/ML VIAL IVP STA (14:23)
[2018-05-31 14:49] VITALS: BP 100/57
== END 2018-05-31 15:25 | disposition home or self-care (01) ==
LOC: ED 09:51
DX: Z90.710 Acquired absence of both cervix and uterus (principal); R10.2 Pelvic and perineal pain
CPT/HCPCS: 36415; 76856; 80053; 81001; 83605; 83690; 85025; 87086; 96361; 96374; 96375; 99283; J1170; 81003

== ENCOUNTER 2019-07-18 16:08 | Emergency (ER) | payer OTHER ==
[2019-07-18 16:47] LABS: BASOPHILS % (AUTO) 0.3 %; EOSINOPHILS # (AUTO) 0.1 10^3/uL (0.0-0.7); EOSINOPHILS % (AUTO) 1.5 %; HGB - HEMOGLOBIN 13.5 g/dL (12.0-16.0); LYMPHOCYTES % (AUTO) 21.5 %; MEAN CORPUSCULAR HEMOGLOBIN 29.8 pg (27.0-31.0); MEAN CORPUSCULAR HGB CONC 32.1 g/dL (32.0-36.0); MEAN CORPUSCULAR VOLUME 92.9 fL (81.0-99.0); MONOCYTES # (AUTO) 0.7 10^3/uL (0.0-1.0); MONOCYTES % (AUTO) 7.8 %; NEUTROPHILS # (AUTO) 6.3 10^3/uL (1.5-6.6); NEUTROPHILS % (AUTO) 68.6 %; PLT - PLATELET COUNT 340 10^3/uL (130-450); RED BLOOD COUNT 4.53 10^6/uL (4.20-5.40); RED CELL DISTRIBUTION WIDTH 12.7 % (12.0-15.0); WHITE BLOOD COUNT 9.2 x10^3/uL (4.8-10.8)
[2019-07-18 16:47] LABS: MUDS CUTOFF CONCENTRATIONS CUTOFF CONC BELOW:
[2019-07-18 16:49] LABS: BILIRUBIN,URINE NEGATIVE (NEGATIVE); GLUCOSE, URINE (UA) NEGATIVE (NEGATIVE); KETONES,URINE (UA) TRACE mg/dL (NEGATIVE); LEUKOCYTE ESTERASE, URINE TRACE (NEGATIVE); NITRITE,URINE NEGATIVE (NEGATIVE); OCCULT BLOOD,URINE NEGATIVE (NEGATIVE); PH,URINE 7.5 PH (5.0-7.5); PROTEIN,URINE NEGATIVE (NEGATIVE); UROBILINOGEN,URINE 0.2 (NORMAL) E.U./dL (NORMAL)
[2019-07-18 16:51] LABS: CLARITY,URINE HAZY (CLEAR); HCG UR QUAL NEGATIVE
[2019-07-18 16:59] LABS: RBC,URINE None Seen /HPF (0-5)
[2019-07-18 17:00] LABS: BACTERIA,URINE None Seen /HPF (None Seen); SQUAMOUS EPITHELIAL CELL,UR NONE SEEN (<= Few)
[2019-07-18 17:06] LABS: ALBUMIN 4.4 g/dL (3.2-5.5); ALBUMIN/GLOBULIN RATIO 1.3 (1.0-2.2); ALKALINE PHOSPHATASE 53 IU/L (42-121); ALT ALANINE AMINOTRANSFERASE 20 IU/L (10-60); AST ASPARTATE AMINOTRANSFERASE 19 IU/L (10-42); BILIRUBIN,TOTAL 0.6 mg/dL (0.2-1.0); BUN - BLOOD UREA NITROGEN 17 mg/dL (6-20); CALCIUM 9.4 mg/dL (8.5-10.3); CARBON DIOXIDE - CO2 28 mmol/L (21-32); CHLORIDE 103 mmol/L (101-111); CREATININE 0.8 mg/dL (0.4-1.0); GFR - MDRD 84 (>89); GLUCOSE 101 mg/dL (70-100); LIPASE 54 U/L (22-51); SODIUM 141 mmol/L (135-145); TOTAL PROTEIN 7.8 g/dL (6.7-8.2)
[2019-07-18 17:06] LABS: AMPHETAMINE SCREEN,URINE NEGATIVE (NEGATIVE); BENZODIAZEPINES SCREEN, URINE NEGATIVE (NEGATIVE); COCAINE SCREEN URINE NEGATIVE (NEGATIVE); METHADONE SCREEN, URINE NEGATIVE (NEGATIVE); METHAMPHETAMINES SCREEN, URINE NEGATIVE (NEGATIVE); OPIATE SCREEN, URINE NEGATIVE (NEGATIVE); OXYCODONE SCREEN, URINE NEGATIVE (NEGATIVE); PROPOXYPHENE SCREEN, URINE NEGATIVE (NEGATIVE); TRICYCLIC ANTIDEPRESSANT,URINE NEGATIVE (NEGATIVE)
[2019-07-18] MEDS ORDERED: diazePAM 5 MG TABLET PO STA ×2 (17:31→20:28)
--- NOTE | 2019-07-18 17:31 | ED Physician Documentation ---
PD HPI MHE - Stated complaint Stated Complaint: MHE - Chief complaint Chief Complaint: MHE - History obtained from History obtained from: Patient - History of Present Illness Primary symptom: Suicidal ideation (This is a 28-year-old mother of 2. She has a history of anxiety and depression and sees a psychiatrist in [place]. Last night she received some very bad news. 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 - Past Surgical History Past Surgical History: Yes General: Cholecystectomy, Other /RN COMM[employer]ITY HE[employer]: Hysterectomy - Present Medications Home Medications: Ambulatory Orders Medication Instructions Recorded Confirmed Estradiol [Estrace] 2 mg PO QPM 07/18/19 07/18/19 Guanfacine HCl [Guanfacine HCl ER] 1.5 mg PO QPM 07/18/19 07/18/19 Loratadine [Allergy] 10 mg PO DAILY 07/18/19 07/18/19 Methylphenidate HCl 27 mg PO DAILY 07/18/19 07/18/19 [Methylphenidate ER] Sertraline [Zoloft] 50 mg PO QPM 07/18/19 07/18/19 - Allergies Allergies/Adverse Reactions: Allergies Allergy/AdvReac Type Severity Reaction Status Date / Time banana Allergy Respiratory Verified 07/18/19 16:21 latex Allergy Itching Verified 07/18/19 16:21 Sulfa (Sulfonamide Allergy Anaphylaxis Verified 07/18/19 16:21 Antibiotics) - Social History Does the pt smoke?: No Smoking Status: Never smoker Does the pt drink ETOH?: No Does the pt have substance abuse?: No - Immunizations Immunizations are current?: Yes - POLST Patient has POLST: No PD ED PE NORMAL - Vitals Vital signs reviewed: Yes - General General: Alert and oriented X 3, Other (Crying and tearful) - HEENT HEENT: PERRL, EOMI - Neck Neck: Supple, no meningeal sign, No bony TTP - Cardiac Cardiac: RRR, No murmur - Respiratory Respiratory: No respiratory distress, Clear bilaterally - Abdomen Abdomen: Soft, Non tender - Back Back: No CVA TTP, No spinal TTP - Derm Derm: Normal color, Warm and dry - Extremities Extremities: No edema, No calf tenderness / cord - Neuro Neuro: Alert and oriented X 3, No motor deficit, No sensory deficit, Normal speech - Psych Psych: Other (Overtly depressed affect, tearful) Results - Vitals Vitals: Vital Signs - 24 hr 07/18/19 07/18/19 16:21 19:14 Temperature 37 C 36.9 C Heart Rate 81 82 Respiratory 18 16 Rate Blood Pressure 123/78 118/82 H O2 Saturation 98 99 Oxygen O2 Source Room air - Labs Labs: Laboratory Tests 07/18/19 07/18/19 07/18/19 16:40 16:40 16:43 WBC 9.2 RBC 4.53 Hgb 13.5 Hct 42.1 MCV 92.9 MCH 29.8 MCHC 32.1 RDW 12.7 Plt Count 340 MPV 10.0 Neut # (Auto) 6.3 Lymph # (Auto) 2.0 [place] # (Auto) 0.7 Eos # (Auto) 0.1 Baso # (Auto) 0.0 Absolute Nucleated RBC 0.00 Nucleated RBC % 0.0 Sodium Potassium Chloride Carbon Dioxide Anion Gap BUN Creatinine Estimated GFR (MDRD) Glucose Calcium Total Bilirubin AST ALT Alkaline Phosphatase Total Protein Albumin Globulin Albumin/Globulin Ratio Lipase TSH Urine Color LT. YELLOW Urine Clarity HAZY Urine pH 7.5 Ur Specific [place] 1.015 Urine Protein NEGATIVE Urine Glucose (UA) NEGATIVE Urine Ketones TRACE Urine Occult Blood NEGATIVE Urine Nitrite NEGATIVE Urine Bilirubin NEGATIVE Urine Urobilinogen 0.2 (NORMAL) Ur Leukocyte Esterase TRACE H Urine RBC None Seen Urine WBC 4-5 Ur Squamous Epith Cells NONE SEEN Urine Bacteria None Seen Ur Microscopic Review INDICATED Urine Culture Comments INDICATED Urine HCG, Qual NEGATIVE Urine Opiates Screen NEGATIVE Ur Oxycodone Screen NEGATIVE Urine Methadone Screen NEGATIVE Ur Propoxyphene Screen NEGATIVE Ur Barbiturates Screen NEGATIVE Ur Tricyclics Screen NEGATIVE Ur Phencyclidine Scrn NEGATIVE Ur Amphetamine Screen NEGATIVE U Methamphetamines Scrn NEGATIVE U Benzodiazepines Scrn NEGATIVE Urine Cocaine Screen NEGATIVE U Cannabinoids Screen NEGATIVE Ethyl Alcohol 07/18/19 07/18/19 16:43 16:43 WBC RBC Hgb Hct MCV MCH MCHC RDW Plt Count MPV Neut # (Auto) Lymph # (Auto) [place] # (Auto) Eos # (Auto) Baso # (Auto) Absolute Nucleated RBC Nucleated RBC % Sodium 141 Potassium 3.7 Chloride 103 Carbon Dioxide 28 Anion Gap 10.0 BUN 17 Creatinine 0.8 Estimated GFR (MDRD) 84 L Glucose 101 H Calcium 9.4 Total Bilirubin 0.6 AST 19 ALT 20 Alkaline Phosphatase 53 Total Protein 7.8 Albumin 4.4 Globulin 3.4 Albumin/Globulin Ratio 1.3 Lipase 54 H TSH 2.60 Urine Color Urine Clarity Urine pH Ur Specific [place] Urine Protein Urine Glucose (UA) Urine Ketones Urine Occult Blood Urine Nitrite Urine Bilirubin Urine Urobilinogen Ur Leukocyte Esterase Urine RBC Urine WBC Ur Squamous Epith Cells Urine Bacteria Ur Microscopic Review Urine Culture Comments Urine HCG, Qual Urine Opiates Screen Ur Oxycodone Screen Urine Methadone Screen Ur Propoxyphene Screen Ur Barbiturates Screen Ur Tricyclics Screen Ur Phencyclidine Scrn Ur Amphetamine Screen U Methamphetamines Scrn U Benzodiazepines Scrn Urine Cocaine Screen U Cannabinoids Screen Ethyl Alcohol < 5.0 PD MEDICAL DECISION MAKING - ED course ED course: 28-year-old woman presents by private vehicle accompanied by sibling. Her children are at a friend's house. She is having a severe grief reaction with suicidal ideation. She has thoughts of self-harm with overdose. She was accepted by Dr. Coffey to [facility], however they cannot take her until the morning but cobras were completed. She is stable for transport to a higher level of psychiatric care. Departure - Departure Disposition: 65 Psych Hosp/Unit DC/Xfer Clinical Impression: Depression Qualifiers: Depression Type: major depressive disorder Major depression recurrence: recurrent Active/Remission status: currently active Major depression episode severity: severe Psychotic features: without psychotic features Qualified Code(s): F33.2 - Major depressive disorder, recurrent severe without psychotic features Forms: Activity restrictions
[2019-07-18] MEDS ORDERED: SERTRALINE 50 MG TABLET PO STA (20:50)
[2019-07-18] MEDS ORDERED: ESTRADIOL 1 MG TABLET PO STA (20:50)
[2019-07-18] MEDS ORDERED: cloNIDine 0.1 MG TABLET PO STA (20:51)
[2019-07-19] MEDS ORDERED: diazePAM 5 MG TABLET PO STA (08:39)
[2019-07-19 09:33] VITALS: BP 102/62
== END 2019-07-19 09:20 ==
LOC: ED 16:08
DX: F33.2 Major depressive disorder, recurrent severe without psychotic features (principal); R45.851 Suicidal ideations; F43.21 Adjustment disorder with depressed mood
CPT/HCPCS: 36415; 80320; 81001; 81025; 83690; 87086; 99284; 99285; A9270; 80053; 80306; 81003; 84443; 85025

== ENCOUNTER 2019-10-18 10:10 | Outpatient (CLI) | payer OTHER | END 2019-10-18 10:11 | disposition critical access hospital (66) | LOC: EMS 10:10 | PROVIDERS: ATTEND Surgery | DX: T46.5X2A Poisoning by other antihypertensive drugs, intentional self-harm, initial encounter (principal); R53.83 Other fatigue | CPT/HCPCS: A0425; A0429 ==

== ENCOUNTER 2019-10-18 10:38 | Observation (INO) | payer OTHER ==
[2019-10-18] MEDS ORDERED: SODIUM CHLORIDE 0.9% 1,000 ML IV ONE ×2 (10:42)
--- NOTE | 2019-10-18 11:09 | ED Physician Documentation ---
History of Present Illness - Stated complaint Stated Complaint: OD - Chief complaint Chief Complaint: MHE - History obtained from History obtained from: Patient, EMS - History of Present Illness Timing: Today Pain level max: 0 Pain level now: 0 - Additonal information Additional information: 29-year-old female states that she was feeling suicidal today. She took clonidine 0.1 mg pills as well as guanfacine 1 mg pills. Unknown quantity of each. She states that she took these approximately 2 to 3 hours prior to arrival. She states she feels sleepy now. She does have a history of depression in the past. She states she has been under increasing stress at home. 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 - Past Surgical History Past Surgical History: Yes General: Cholecystectomy, Other /WEB SYSTEMS DEVELOPER: Hysterectomy - Present Medications Home Medications: Ambulatory Orders Medication Instructions Recorded Confirmed Guanfacine HCl [Guanfacine HCl ER] 1.5 mg PO QPM 07/18/19 07/18/19 Loratadine [Allergy] 10 mg PO DAILY 07/18/19 07/18/19 Methylphenidate HCl 27 mg PO DAILY 07/18/19 07/18/19 [Methylphenidate ER] Sertraline [Zoloft] 50 mg PO QPM 07/18/19 07/18/19 estradioL [Estrace] 2 mg PO QPM 07/18/19 07/18/19 - Allergies Allergies/Adverse Reactions: Allergies Allergy/AdvReac Type Severity Reaction Status Date / Time banana Allergy Respiratory Verified 10/18/19 10:44 latex Allergy Itching Verified 10/18/19 10:44 Sulfa (Sulfonamide Allergy Anaphylaxis Verified 10/18/19 10:44 Antibiotics) - Social History Does the pt smoke?: No Smoking Status: Never smoker Does the pt drink ETOH?: No Does the pt have substance abuse?: No - Immunizations Immunizations are current?: Yes - POLST Patient has POLST: No PD ED PE NORMAL - Vitals Vital signs reviewed: Yes - General General: Alert and oriented X 3, No acute distress, Well developed/nourished - HEENT HEENT: PERRL, Moist mucous membranes - Neck Neck: Supple, no meningeal sign - Cardiac Cardiac: RRR, Strong equal pulses - Respiratory Respiratory: No respiratory distress, Clear bilaterally - Abdomen Abdomen: Soft, Non tender, Non distended - Derm Derm: Warm and dry, No rash - Extremities Extremities: No edema - Neuro Neuro: Alert and oriented X 3 - Psych Psych: Normal mood, Normal affect Results - Vitals Vitals: Vital Signs - 24 hr 10/18/19 10/18/19 10/18/19 10:42 10:44 11:24 Temperature 36.9 C Heart Rate 50 L 58 L 51 L Respiratory 18 12 18 Rate Blood Pressure 128/76 118/95 H 154/103 H O2 Saturation 98 100 98 10/18/19 11:47 Temperature 36.6 C Heart Rate 50 L Respiratory 20 Rate Blood Pressure 130/91 H O2 Saturation 99 Oxygen O2 Source Room air - EKG (time done) 1059 Rate: Rate (enter#) (49) Rhythm: Sinus bradycardia [place]: Normal Intervals: Normal MA QRS: Normal Ischemia: Normal ST segments - Labs Labs: Laboratory Tests 10/18/19 10/18/19 10/18/19 11:32 11:32 11:32 WBC 9.3 RBC 4.56 Hgb 13.6 Hct 41.9 MCV 91.9 MCH 29.8 MCHC 32.5 RDW 12.4 Plt Count 299 MPV 10.0 Neut # (Auto) 7.4 H Lymph # (Auto) 1.1 L [place] # (Auto) 0.8 Eos # (Auto) 0.1 Baso # (Auto) 0.0 Absolute Nucleated RBC 0.00 Nucleated RBC % 0.0 Sodium 137 Potassium 4.0 Chloride 99 L Carbon Dioxide 27 Anion Gap 11.0 BUN 17 Creatinine 0.8 Estimated GFR (MDRD) 84 L Glucose 142 H Calcium 9.3 Total Bilirubin 0.9 AST 26 ALT 26 Alkaline Phosphatase 47 Total Protein 8.0 Albumin 4.2 Globulin 3.8 Albumin/Globulin Ratio 1.1 Lipase 36 TSH 3.18 Salicylates < 6.0 Acetaminophen < 10 L Ethyl Alcohol < 5.0 PD MEDICAL DECISION MAKING - ED course Complexity details: reviewed results, re-evaluated patient, considered differential, d/w patient, d/w family, d/w field technical support consultant ED course: Poison control recommends observation overnight. They recommend she stay on telemetry monitoring. Possible obtundation could occur later. Discussed the case with Dr. Merida who accepts. Patient will be observed in the ICU. Patient will also need mental health evaluation once medically clear. This document was made in part using voice recognition software. While efforts are made to proofread this document, sound alike and grammatical errors may occur. Departure - Departure Disposition: ED Place in Observation Clinical Impression: Overdose Qualifiers: Encounter type: initial encounter Injury intent: intentional self-harm Qualified Code(s): T50.902A - Poisoning by unspecified drugs, medicaments and biological substances, intentional self-harm, initial encounter Suicidal overdose Qualifiers: Encounter type: initial encounter Qualified Code(s): T50.902A - Poisoning by unspecified drugs, medicaments and biological substances, intentional self-harm, initial encounter Condition: Stable Discharge Date/Time: 10/18/19 13:23
[2019-10-18 11:37] LABS: BASOPHILS % (AUTO) 0.2 %; EOSINOPHILS # (AUTO) 0.1 10^3/uL (0.0-0.7); EOSINOPHILS % (AUTO) 0.8 %; HGB - HEMOGLOBIN 13.6 g/dL (12.0-16.0); LYMPHOCYTES # (AUTO) 1.1 10^3/uL (1.5-3.5); LYMPHOCYTES % (AUTO) 11.5 %; MEAN CORPUSCULAR HEMOGLOBIN 29.8 pg (27.0-31.0); MEAN CORPUSCULAR HGB CONC 32.5 g/dL (32.0-36.0); MEAN CORPUSCULAR VOLUME 91.9 fL (81.0-99.0); MONOCYTES # (AUTO) 0.8 10^3/uL (0.0-1.0); NEUTROPHILS # (AUTO) 7.4 10^3/uL (1.5-6.6); NEUTROPHILS % (AUTO) 79.1 %; PLT - PLATELET COUNT 299 10^3/uL (130-450); RED BLOOD COUNT 4.56 10^6/uL (4.20-5.40); RED CELL DISTRIBUTION WIDTH 12.4 % (12.0-15.0); WHITE BLOOD COUNT 9.3 x10^3/uL (4.8-10.8)
[2019-10-18] MEDS ORDERED: PROCHLORPERAZINE 10 MG/2 ML VIAL IVP PRN (11:47)
[2019-10-18] MEDS ORDERED: SODIUM CHLORIDE FLUSH 0.9% 10 ML SYRINGE IVP PRN (11:47)
[2019-10-18 11:49] LABS: ACETAMINOPHEN < 10 ug/mL (10-30); ALBUMIN 4.2 g/dL (3.2-5.5); ALBUMIN/GLOBULIN RATIO 1.1 (1.0-2.2); ALKALINE PHOSPHATASE 47 IU/L (42-121); ALT ALANINE AMINOTRANSFERASE 26 IU/L (10-60); AST ASPARTATE AMINOTRANSFERASE 26 IU/L (10-42); BILIRUBIN,TOTAL 0.9 mg/dL (0.2-1.0); BUN - BLOOD UREA NITROGEN 17 mg/dL (6-20); CALCIUM 9.3 mg/dL (8.5-10.3); CARBON DIOXIDE - CO2 27 mmol/L (21-32); CHLORIDE 99 mmol/L (101-111); CREATININE 0.8 mg/dL (0.4-1.0); GFR - MDRD 84 (>89); GLUCOSE 142 mg/dL (70-100); LIPASE 36 U/L (22-51); SALICYLATE < 6.0 mg/dL; SODIUM 137 mmol/L (135-145)
[2019-10-18] MEDS: D5NS W/20 MEQ KCL 1,000 ML IV SCH (14:11)
[2019-10-18] MEDS: ACETAMINOPHEN 325 MG TABLET PO PRN ×2 (14:42→19:14)
[2019-10-18] MEDS: CARBOXYMETHYLCELLULOSE OPHTH DROPS EACHEYE PRN ×2 (16:32→23:08)
[2019-10-18] MEDS: SODIUM CHLORIDE FLUSH 0.9% 10 ML SYRINGE IVP SCH (16:34)
--- NOTE | 2019-10-18 18:19 | HISTORY & PHYSICAL EXAMINATION ---
DATE OF SERVICE: 10/18/2019 Physician: Jimena Merida MD HISTORY OF PRESENT ILLNESS: This is a 29-year-old white female with a history of depression, past rojas icide attempts and needing stay at an inpatient psych facility. Today, she was feeling suicidal and took Clonidine 0.1 mg tablets, unknown amount as well as guanfacine 1 mg pills, unknown amount. She took these about 3 hours before arriving to the emergency room and stated she felt very sleepy. She reported in the ER, she had been under increased stress at home. In the ER, she was noted to be ramu ycardic with rates in the range of 50-52 and is being admitted for suicide intent with medication ove rdose and bradycardia from her medications. PAST MEDICAL HISTORY 1. Depression. 2. Endometriosis. 3. Hysterectomy. 4. Cholecystectomy. MEDICATIONS 1. Guanfacine ER 1.5 mg every night. 2. Loratadine 10 mg daily. 3. Methylphenidate 27 mg daily. 4. Zoloft 50 mg every night. 5. Estradiol 2 mg every night. ALLERGIES 1. BANANAS. 2. LATEX. 3. SULFA. THE SULFA GAVE HER ANAPHYLAXIS. SOCIAL HISTORY: She is a nonsmoker, who never smoked, drinks no alcohol, no IV drug abuse. FAMILY HISTORY: Noncontributory. REVIEW OF SYSTEMS: A comprehensive review of systems was performed and the pertinent positives are l isted, the rest are negative. PHYSICAL EXAMINATION GENERAL: White female who appears lethargic. VITAL SIGNS: Blood pressure 120/90, heart rate 41-50 in sinus bradycardia, afebrile, room air satura tion 98%. HEENT: Unremarkable. NECK: Without JVD or carotid bruits. CHEST: Clear. HEART: Normal heart sounds with no murmurs. ABDOMEN: Soft, nontender. EXTREMITIES: No edema. NEUROLOGIC: Grossly intact except she is somnolent. LABORATORY DATA: Normal electrolytes. Normal BUN and creatinine. Normal liver tests. Normal TSH, normal CBC. Toxicology shows serum salicylate is not present. Tylenol not present and ethanol not p resent. Her nasal screen for MRSA was negative. IMPRESSION/DIAGNOSES 1. Suicidal intent. 2. Medication overdose. 3. Depression. PLAN: Place patient in observation status in the ICU with one-to-one monitoring on telemetry. Poiso n Control was called by the ER and recommendations were to monitor her for about 24 hours until the e ffects of these medications have worn off, especially to watch for the bradycardic effect where atrop ine may be needed. After she is cleared from a clinical and medical standpoint, mental health evalua tion is planned, which would be about tomorrow at midday. Continue with IV fluids since her somnolen ce may lead to her being unable to hydrate or eat. Follow BMP. CODE STATUS: FULL CODE. DEEP VENOUS THROMBOSIS PROPHYLAXIS: SCDs. ATTESTATION: Patient is expected to be discharged or transferred to another facility within 96 hours : Yes. cc: Sarah Naylor TD: 10/18/2019 17:46
[2019-10-18 19:09] LABS: MUDS CUTOFF CONCENTRATIONS CUTOFF CONC BELOW:
[2019-10-18 19:17] LABS: BILIRUBIN,URINE NEGATIVE (NEGATIVE); CLARITY,URINE CLEAR (CLEAR); GLUCOSE, URINE (UA) NEGATIVE (NEGATIVE); HCG UR QUAL NEGATIVE; KETONES,URINE (UA) TRACE mg/dL (NEGATIVE); LEUKOCYTE ESTERASE, URINE NEGATIVE (NEGATIVE); NITRITE,URINE NEGATIVE (NEGATIVE); OCCULT BLOOD,URINE NEGATIVE (NEGATIVE); PROTEIN,URINE NEGATIVE (NEGATIVE); UROBILINOGEN,URINE 0.2 (NORMAL) E.U./dL (NORMAL)
[2019-10-18 19:26] LABS: AMPHETAMINE SCREEN,URINE NEGATIVE (NEGATIVE); BENZODIAZEPINES SCREEN, URINE NEGATIVE (NEGATIVE); COCAINE SCREEN URINE NEGATIVE (NEGATIVE); METHADONE SCREEN, URINE NEGATIVE (NEGATIVE); METHAMPHETAMINES SCREEN, URINE NEGATIVE (NEGATIVE); OPIATE SCREEN, URINE NEGATIVE (NEGATIVE); OXYCODONE SCREEN, URINE NEGATIVE (NEGATIVE); PROPOXYPHENE SCREEN, URINE NEGATIVE (NEGATIVE); TRICYCLIC ANTIDEPRESSANT,URINE NEGATIVE (NEGATIVE)
[2019-10-18] MEDS ORDERED: CALCIUM CARBONATE CHEW 500 MG TABLET PO PRN (19:50)
[2019-10-18] MEDS ORDERED: IBUPROFEN 400 MG TABLET PO PRN (19:55)
[2019-10-18] MEDS: FAMOTIDINE 20 MG TABLET PO SCH (20:26)
[2019-10-18] MEDS: estradioL 1 MG TABLET PO SCH (23:07)
[2019-10-19] MEDS: SODIUM CHLORIDE FLUSH 0.9% 10 ML SYRINGE IVP SCH ×3 (04:03→15:53)
[2019-10-19 05:05] LABS: CALCIUM 8.7 mg/dL (8.5-10.3); CREATININE 0.8 mg/dL (0.4-1.0); MAGNESIUM 1.9 mg/dL (1.7-2.8); PHOSPHORUS 3.3 mg/dL (2.5-4.6)
[2019-10-19] MEDS: D5NS W/20 MEQ KCL 1,000 ML IV SCH (07:32)
[2019-10-19] MEDS: estradioL 1 MG TABLET PO SCH (08:30)
[2019-10-19] MEDS: FAMOTIDINE 20 MG TABLET PO SCH (08:37)
[2019-10-19] MEDS: CARBOXYMETHYLCELLULOSE OPHTH DROPS EACHEYE PRN (16:06)
--- NOTE | 2019-10-19 16:07 | Discharge Plan ---
Discharge Plan Problem Reviewed?: Yes Disposition: Home, Self Care Condition: Stable Diet: Regular Activity Restrictions: Activity as Tolerated Shower Restrictions: No Driving Restrictions: Yes (Do not drive if you are oversedated) Health Concerns: You were admitted under observation status after taking excessive doses of Clonidine and Guanfacine pills, which caused oversedation and slow heart rate. These symptoms have stabilized. You were seen by social work and a "safety plan" has been completed. Please follow this plan. Plan of Treatment: You may use your estrogen medicine but check with your psychiatry provider as to whether you should take Zoloft, Guanfacine and Clonidine. You were provided with information to get help through and other resources, when you spoke with our director of social media marketing. Care Goals: Improvement and stabilization are the goals. Assessment: The patient understands and is in agreement. No Smoking: If you smoke, Please STOP! Call for help. Follow-up with: PALMA WHITING [Primary Care Provider] -
[2019-10-19 16:16] VITALS: BP 86/57
--- NOTE | 2019-10-19 17:12 | DISCHARGE SUMMARY ---
Discharge Summary Admit Date: 10/18/19 Discharge Date: 10/19/19 Discharging Provider: Dr Jimena Merida Primary Care Provider: Dr Sarah Naylor Code Status: Attempt Resuscitation Condition at Discharge: Stable Discharge Disposition: 01 Home, Self Care - DIAGNOSES Admission Diagnoses: 1) Suicide attempt 2) Medication overdose 3) Depression Discharge Diagnoses with Status of Each Condition: See below - HPI History of Present Illness: This is a 29-year-old white female with history of depression with prior suicidal ideation but no attempts, was hospitalized at [facility] several months ago, felt that she had no psychiatry see her and signed out AMA. The patient has had trouble with her marriage. She presents now after admitted suicide attempt using an overdose of her clonidine and guaifenesin pills. She became sleepy and presented to the emergency room. Poison control was called and advised that she be monitored for 24 hours for sedation and bradycardia. She is being admitted to the ICU for suicide attempt with medication overdoses. Blood pressure is currently stable but heart rate has decreased into the 40-50 range, she is lethargic and difficult to arouse but otherwise clinically stable. - HOSPITAL COURSE Hospital Course: 1) Medication overdose. Patient was monitored on telemetry in the ICU. Her heart rate did drop as low as 35-38 and sinus bradycardia but she had stable vital signs with this. She was also very somnolent but was able to arouse to eat complete meal trays. By 24 hours her sedation and bradycardia had resolved, heart rate was 60. She was able to speak to the hospital tray service worker. 2) Suicide attempt. The hospital tray service worker spoke with her as well as the . There is been marital trouble and they are starting to get marriage counseling. The evaluation revealed that she is no longer suicidal. There was a safety plan made with the hospital tray service worker. The patient was able to be discharged on the following day in stabilized condition. She was advised to resume her estrogen but to check with her psychiatry provider about resumption of clonidine, guanfacine and Zoloft. 3) Bradycardia. This was related to the above medication overdoses and was stabilized. 4) Depression broom worker advised her with the safety plan and gave her resources with her [employer] insurance and other locations 5) ADHD This diagnosis was not known at admission. This is the reason she took clonidine and guanfacine. She was advised to ask her psychiatrist regarding resumption of these. 6) Hot flashes He is on estrogen replacement for this and it was continued and advised to be resumed after discharge. - ALLERGIES Allergies/Adverse Reactions: Allergies Allergy/AdvReac Type Severity Reaction Status Date / Time banana Allergy Respiratory Verified 10/18/19 10:44 latex Allergy Itching Verified 10/18/19 10:44 Sulfa (Sulfonamide Allergy Anaphylaxis Verified 10/18/19 10:44 Antibiotics) - MEDICATIONS Home Medications: Ambulatory Orders Medication Instructions Recorded Confirmed Methylphenidate HCl 27 mg PO DAILY 07/18/19 07/18/19 [Methylphenidate ER] estradioL [Estrace] 2 mg PO QPM 07/18/19 07/18/19 - PHYSICAL EXAM AT DISCHARGE General Appearance: positive: No acute distress, Lethargic Eyes Bilateral: positive: Normal inspection, EOMI ENT: positive: ENT inspection nml, No signs of dehydration Neck: positive: Nml inspection, No JVD Respiratory: positive: No respiratory distress Cardiovascular: positive: Regular rate & rhythm, No murmur Abdomen: positive: Non-tender, Nml bowel sounds, No distention Skin: positive: Color nml Extremities: positive: No pedal edema Neurologic/Psychiatric: positive: Oriented x3, Other (Appears lethargic but answers complete clear sentences and nonfocal neuro exam) - LABS Result Diagrams: 10/18/19 11:32 10/19/19 04:10 - DIAGNOSTIC IMAGING Diagnostic Imaging Results: Final report reviewed - FOLLOW UP Follow Up: See psychiatrist soon and PCP as needed. - TIME SPENT Time Spent in Discharge (Minutes): 30
== END 2019-10-19 17:21 | disposition home or self-care (01) ==
LOC: EDUNIT# → ED 10:38 → ICU 11:54
PROVIDERS: ADMIT Internal Medicine; ATTEND Internal Medicine
DX: T46.5X2A Poisoning by other antihypertensive drugs, intentional self-harm, initial encounter (principal); R00.1 Bradycardia, unspecified; R40.0 Somnolence; Y92.009 Unspecified place in unspecified non-institutional (private) residence as the place of occurrence of the external cause; F32.9 Major depressive disorder, single episode, unspecified; F90.9 Attention-deficit hyperactivity disorder, unspecified type; N95.1 Menopausal and female climacteric states; Z63.0 Problems in relationship with spouse or partner; Z79.899 Other long term (current) drug therapy; Z79.890 Hormone replacement therapy
CPT/HCPCS: 36415; 80048; 80320; 80329; 81003; 81025; 83690; 83735; 84100; 87150; 93005; 96360; 96361; 99285; A9270; G0378; 80053; 80306; 80307; 81001; 84443; 85025; 87086

== ENCOUNTER 2019-10-25 16:10 | Emergency (ER) | payer OTHER ==
--- NOTE | 2019-10-25 16:42 | ED Physician Documentation ---
PD HPI CHEST PAIN - Stated complaint Stated Complaint: HBP/CP - Chief complaint Chief Complaint: Cardiac - History obtained from History obtained from: Patient - History of Present Illness Timing - onset: Other (Recent ICU admit for overdose, ever since then she has had chest pressure radiating to the neck and exertional dyspnea[place] of 140/88 so was referred here for hypertension.) Review of Systems Constitutional: denies: Fever, Chills Nose: denies: Rhinorrhea / runny nose, Congestion Throat: denies: Sore throat Cardiac: reports: Chest pain / pressure, Palpitations. denies: Pedal edema, Calf pain Respiratory: denies: Cough GI: denies: Abdominal Pain PD PAST MEDICAL HISTORY - Past Medical History Cardiovascular: None Respiratory: None Neuro: None Endocrine/Autoimmune: None GI: Ulcers, Hemorrhoids PRODUCT SUPPORT CONSULTANT: Endometriosis : None Psych: Depression, Anxiety, Panic attacks, ADD/ADHD, Post traumatic stress disorder Musculoskeletal: None Derm: None - Past Surgical History Past Surgical History: Yes General: Cholecystectomy, Other /PRODUCT SUPPORT CONSULTANT: Hysterectomy - Present Medications Home Medications: Ambulatory Orders Medication Instructions Recorded Confirmed Methylphenidate HCl 27 mg PO DAILY 07/18/19 07/18/19 [Methylphenidate ER] estradioL [Estrace] 2 mg PO QPM 07/18/19 07/18/19 Methylphenidate [Ritalin] 5 mg PO DAILY 10/25/19 10/25/19 - Allergies Allergies/Adverse Reactions: Allergies Allergy/AdvReac Type Severity Reaction Status Date / Time banana Allergy Respiratory Verified 10/25/19 16:18 latex Allergy Itching Verified 10/25/19 16:18 Sulfa (Sulfonamide Allergy Anaphylaxis Verified 10/25/19 16:18 Antibiotics) - Social History Does the pt smoke?: No Smoking Status: Never smoker Does the pt drink ETOH?: No Does the pt have substance abuse?: No - Immunizations Immunizations are current?: Yes - POLST Patient has POLST: No PD ED PE NORMAL - Vitals Vital signs reviewed: Yes - General General: Alert and oriented X 3, No acute distress - HEENT HEENT: PERRL, EOMI - Neck Neck: Supple, no meningeal sign, No bony TTP - Cardiac Cardiac: RRR, No murmur - Respiratory Respiratory: No respiratory distress, Clear bilaterally - Abdomen Abdomen: Non tender - Extremities Extremities: No edema, No calf tenderness / cord - Neuro Neuro: Alert and oriented X 3, Normal speech Results - Vitals Vitals: Vital Signs - 24 hr 10/25/19 16:12 Temperature 36.3 C L Heart Rate 66 Respiratory 18 Rate Blood Pressure 132/87 H O2 Saturation 99 Oxygen O2 Source Room air - EKG (time done) 1622 Rate: Rate (enter#) (69) Rhythm: NSR [place]: Normal Intervals: Normal [place] QRS: Normal Ischemia: Normal ST segments Computer interpretation: Agree with computer - Labs Labs: Laboratory Tests 10/25/19 10/25/19 10/25/19 17:05 17:05 17:05 WBC 7.1 RBC 4.30 Hgb 12.7 Hct 39.5 MCV 91.9 MCH 29.5 MCHC 32.2 RDW 12.7 Plt Count 263 MPV 10.8 Neut # (Auto) 3.9 Lymph # (Auto) 2.4 [place] # (Auto) 0.4 Eos # (Auto) 0.3 Baso # (Auto) 0.0 Absolute Nucleated RBC 0.00 Nucleated RBC % 0.0 D-Dimer Sodium 140 Potassium 3.5 Chloride 100 L Carbon Dioxide 28 Anion Gap 12.0 BUN 11 Creatinine 0.8 Estimated GFR (MDRD) 84 L Glucose 84 Calcium 9.3 Total Bilirubin 0.2 AST 34 ALT 55 Alkaline Phosphatase 52 Troponin I High Sens 63.1 H* Total Protein 8.0 Albumin 4.2 Globulin 3.8 Albumin/Globulin Ratio 1.1 Lipase 120 H Urine Color Urine Clarity Urine pH Ur Specific [place] Urine Protein Urine Glucose (UA) Urine Ketones Urine Occult Blood Urine Nitrite Urine Bilirubin Urine Urobilinogen Ur Leukocyte Esterase Ur Microscopic Review Urine Culture Comments 10/25/19 10/25/19 10/25/19 17:05 17:20 19:05 WBC RBC Hgb Hct MCV MCH MCHC RDW Plt Count MPV Neut # (Auto) Lymph # (Auto) [place] # (Auto) Eos # (Auto) Baso # (Auto) Absolute Nucleated RBC Nucleated RBC % D-Dimer 384.5 H Sodium Potassium Chloride Carbon Dioxide Anion Gap BUN Creatinine Estimated GFR (MDRD) Glucose Calcium Total Bilirubin AST ALT Alkaline Phosphatase Troponin I High Sens 52.9 H* Total Protein Albumin Globulin Albumin/Globulin Ratio Lipase Urine Color YELLOW Urine Clarity CLEAR Urine pH 6.0 Ur Specific [place] 1.015 Urine Protein NEGATIVE Urine Glucose (UA) NEGATIVE Urine Ketones NEGATIVE Urine Occult Blood NEGATIVE Urine Nitrite NEGATIVE Urine Bilirubin NEGATIVE Urine Urobilinogen 0.2 (NORMAL) Ur Leukocyte Esterase NEGATIVE Ur Microscopic Review NOT INDICATED Urine Culture Comments NOT INDICATED PD MEDICAL DECISION MAKING - ED course ED course: Her symptoms are most consistent with post ICU deconditioning, vital signs and lack of other symptoms would suggest against PE. 29-year-old woman presents with ongoing chest pressure since a recent ICU admission for an overdose, her troponin was actually somewhat elevated, but this was repeated and going down. I suspect this was from the stress of her recent ICU admission. Her d-dimer was elevated but followed by CT pulmonary angiogram which was negative. Departure - Departure Disposition: 01 Home, Self Care Clinical Impression: Atypical chest pain Condition: Good Record reviewed to determine appropriate education?: Yes Instructions: ED Chest Pain NonCardiac Comments: Call your doctor to arrange a follow-up appointment, make the next available appointment. In the interim, return anytime if worse or if new symptoms develop.
[2019-10-25 17:25] LABS: BASOPHILS % (AUTO) 0.3 %; EOSINOPHILS # (AUTO) 0.3 10^3/uL (0.0-0.7); EOSINOPHILS % (AUTO) 4.1 %; HGB - HEMOGLOBIN 12.7 g/dL (12.0-16.0); LYMPHOCYTES # (AUTO) 2.4 10^3/uL (1.5-3.5); LYMPHOCYTES % (AUTO) 34.4 %; MEAN CORPUSCULAR HEMOGLOBIN 29.5 pg (27.0-31.0); MEAN CORPUSCULAR HGB CONC 32.2 g/dL (32.0-36.0); MEAN CORPUSCULAR VOLUME 91.9 fL (81.0-99.0); MEAN PLATELET VOLUME 10.8 fL (7.9-10.8); MONOCYTES # (AUTO) 0.4 10^3/uL (0.0-1.0); MONOCYTES % (AUTO) 5.7 %; NEUTROPHILS # (AUTO) 3.9 10^3/uL (1.5-6.6); NEUTROPHILS % (AUTO) 55.2 %; PLT - PLATELET COUNT 263 10^3/uL (130-450); RED CELL DISTRIBUTION WIDTH 12.7 % (12.0-15.0); WHITE BLOOD COUNT 7.1 x10^3/uL (4.8-10.8)
[2019-10-25 17:33] LABS: BILIRUBIN,URINE NEGATIVE (NEGATIVE); GLUCOSE, URINE (UA) NEGATIVE (NEGATIVE); KETONES,URINE (UA) NEGATIVE (NEGATIVE); LEUKOCYTE ESTERASE, URINE NEGATIVE (NEGATIVE); NITRITE,URINE NEGATIVE (NEGATIVE); OCCULT BLOOD,URINE NEGATIVE (NEGATIVE); PROTEIN,URINE NEGATIVE (NEGATIVE); UROBILINOGEN,URINE 0.2 (NORMAL) E.U./dL (NORMAL)
[2019-10-25 17:34] LABS: ALBUMIN 4.2 g/dL (3.2-5.5); ALBUMIN/GLOBULIN RATIO 1.1 (1.0-2.2); BILIRUBIN,TOTAL 0.2 mg/dL (0.2-1.0); CALCIUM 9.3 mg/dL (8.5-10.3); CREATININE 0.8 mg/dL (0.4-1.0)
[2019-10-25 17:34] LABS: CLARITY,URINE CLEAR (CLEAR)
[2019-10-25] MEDS ORDERED: IOVERSOL 320 100 ML VIAL IVP ONE ×2 (19:25→20:59)
--- NOTE | 2019-10-25 20:11 | CT Report ---
Reason: chest pain Procedure Date: 10/25/2019 Accession Number: [id number] / [id number] Procedure: CT - ANGIO CHEST W/WO CPT Code: Final Report FULL RESULT: EXAM: CT ANGIOGRAM CHEST EXAM DATE: 10/25/2019 07:50 PM. CLINICAL HISTORY: Chest pain. COMPARISON: None. TECHNIQUE: Routine helical imaging was performed through the chest in the pulmonary arterial phase. IV Contrast: OPTI 320 80ML. Reconstructions: Coronal 3-D MIP reconstructions.Sagittal and coronal. In accordance with CT protocol optimization, one or more of the following dose reduction techniques were utilized for this exam: automated exposure control, adjustment of mA and/or KV based on patient size, or use of iterative reconstructive technique. FINDINGS: Pulmonary Arteries: Diagnostic quality: Adequate through the segmental arteries. No evidence for acute or chronic pulmonary emboli. RV/LV is within normal limits. There is no interventricular septal bowing. There is no reflux of contrast material in the IVC. Lungs/Pleura: No consolidation, nodules, or edema. No effusions or pneumothorax. Mediastinum: Normal. No cardiac enlargement or adenopathy. Thoracic Aorta: Unremarkable. Upper Abdomen: Unremarkable. Post cholecystectomy. Other: None. IMPRESSION: Normal pulmonary CT angiogram. No pulmonary emboli. RAD[facility]
[2019-10-25 20:52] VITALS: BP 126/92
--- NOTE | 2019-10-26 09:29 | ED Physician Documentation ---
ED Addendum - Addendum Addendum: 10/26/19 09:27 Followup phone call to pt, still having exertion CP and had syncope too in the interim. Called Jimena Verdin who is doing stress tests today and agrees appropriate for treadmill/nuclear and they will call her to schedule expedited stress. Pt updated and agreeable, she will be NPO without exertion until she hears from nuc med.
== END 2019-10-25 20:55 | disposition home or self-care (01) ==
LOC: ED 16:10
DX: R07.89 Other chest pain (principal); R55 Syncope and collapse; R74.8 Abnormal levels of other serum enzymes; R79.89 Other specified abnormal findings of blood chemistry
CPT/HCPCS: 36415; 71275; 80053; 81003; 83690; 84484; 85025; 85379; 93005; 99284; Q9967; 81001; 87086

== ENCOUNTER 2019-10-26 10:19 | Outpatient (CLI) | payer OTHER ==
[2019-10-26] MEDS ORDERED: REGADENOSON 0.4 MG/5 ML SYRINGE IVP ONE ×3 (14:18→17:31)
[2019-10-26] MEDS ORDERED: AMINOPHYLLINE 250 MG/10 ML VIAL ONE (16:08)
--- NOTE | 2019-10-26 18:15 | CARDIAC PROCEDURE NOTE ---
DATE OF SERVICE: 10/26/2019 Physician: Jimena Merida MD, [facility] INDICATION: Chest pain. CARDIAC RISK FACTORS: Estrogen therapy intake. PROCEDURE: After signing informed consent, the patient underwent a Lexiscan pharmaceutical stress test with nuclear myocardial perfusion imaging. Lexiscan was infused per protocol. The patient developed 7/10 chest pain, brief shortness of breath, headache and flushing. The symptoms did not resolve after 2 minutes. Therefore, 25 mg aminophylline IV was given for reversal. This abated her symptoms. RESTING HEART RATE: 87. PEAK HEART RATE: 120. RESTING BLOOD PRESSURE: 128/73. PEAK HEART RATE: 120/88. RESTING EKG: Normal sinus rhythm, within normal limits. EKG AT PEAK: Flat T waves develop in leads II, III, aVF, and V3 through V6. After 1 minute, the T waves revert upright. SUMMARY 1. Chest pain develops with pharmaceutical stress testing. 2. Significant T-wave changes suggestive of ischemia parallel her chest pain symptoms. 3. Cardiac risk based non all the above: High. 4. Nuclear images reported separately. ADDENDUM: The nuclear waste management engineer reported that he forgot to give the nuclear agent after the above Lexiscan dosing. The patient was offered to undergo a pharmaceutical stress test again. The patient was willing to have repeat pharmaceutical stress testing. A new consent form was signed. The patient had Lexiscan infusion per protocol. This time, she only developed headache and flushing, no chest pain or shortness of breath. RESTING HEART RATE: 80. PEAK HEART RATE: 178. RESTING BLOOD PRESSURE: 119/85. PEAK BLOOD PRESSURE: 136/68. RESTING EKG: Normal sinus rhythm, relatively flat T waves are seen in leads II, III, aVF. EKG AT PEAK: No new ST-segment or T-wave changes occur. However, she develops junctional rhythm. At this point, she also described severe fatigue. (This was the type of fatigue that had led to the syncopal episode that she had earlier today at home). Her blood pressure during this was 124/74, and 119/76. The heart rate did not drop below 70. Aminophylline was given for reversal, 25 mg IV x2 until there was recovery of P waves, and with this she immediately felt less fatigued and back to normal. SUMMARY 1. No chest pain symptoms developed with a repeat pharmaceutical stress procedure. This may be because she had received reversal agent Aminophylline for test number 1 and also drank caffeine in cola. 2. Abnormal development of junctional rhythm occurs (this is a known side effect of Lexiscan) and this paralleled her symptoms of extreme fatigue, which had been present during syncope earlier in the day. 3. Nuclear images reported separately and are based on stress test number 2. RECOMMENDATION: The patient needs overall evaluation by Cardiology for review of the EKGs, the nuclear results, her syncopal episode and her symptoms of chest pain. Cardiac risk factor based on all the above: Moderate. TD: 10/26/2019 17:46 SG
--- NOTE | 2019-10-27 08:00 | Nuclear Medicine Report ---
Reason: HBP/CP Procedure Date: 10/26/2019 Accession Number: [id number] / [id number] Procedure: NM - Myocardial Perfusion STR/RST CPT Code: Final Report FULL RESULT: EXAM: SINGLE-ISOTOPE PHARMACOLOGICAL STRESS TEST WITH REGADENOSON. SINGLE-ISOTOPE AND TWO-DAY REST/STRESS MYOCARDIAL PERFUSION SCANS WITH TOMOGRAPHIC IMAGING, QUANTITATIVE ANALYSIS, WALL MOTION ANALYSIS AND CALCULATION OF EJECTION FRACTION. EXAM DATE: 10/26/2019 12:24 PM. CLINICAL HISTORY: Hypertension. Chest pain. COMPARISON: None. TECHNIQUE: A pharmacological stress was performed with the infusion of 0.4 mg regadenoson per protocol. According to protocol, 9.3 mCi of Tc-99m sestamibi was injected for stress myocardial perfusion scan. Motion correction was applied when appropriate. The following day after the intravenous administration of 33.6 mCi of Tc-99m sestamibi, a rest myocardial perfusion scan was done with tomography. Motion correction was applied when appropriate. Gated tomographic images were obtained for wall motion analysis and computation of left ventricular ejection fraction. FINDINGS: Perfusion images: Left ventricular chamber size appears normal at rest and unchanged at stress. Small to moderate size, moderate severity apical third anterior/anteroseptal wall and anterior apex perfusion deficit appears fixed. There is normal thickening and motion on gated images. This is probably secondary to breast attenuation artifact. No convincing reversible perfusion deficits. SSS 8, SRS 7, SDS 1. Gated images: No convincing focal wall motion abnormality. Calculated left ventricular EDV 68 mL, ESV 14 mL. The left ventricular ejection fraction is estimated at 79% (normal > 50%). IMPRESSION: 1. No convincing reversible perfusion deficits to indicate stress-induced ischemia. 2. Fixed apical third anterior/anteroseptal wall perfusion deficit, probably secondary to breast attenuation artifact. 3. Left ventricular ejection fraction of 79% (normal > 50%). Please correlate findings with stress ECG tracings and procedure notes. [facility]
== END 2019-10-26 10:20 | disposition home or self-care (01) ==
LOC: DI 10:19
PROVIDERS: ATTEND Emergency Medicine
DX: R07.9 Chest pain, unspecified (principal); R03.0 Elevated blood-pressure reading, without diagnosis of hypertension
CPT/HCPCS: 78452; 93017

== ENCOUNTER 2019-10-26 13:41 | Emergency (ER) | payer OTHER ==
[2019-10-26 14:03] VITALS: BP 126/86
[2019-10-26 15:00] LABS: BASOPHILS % (AUTO) 0.4 %; EOSINOPHILS # (AUTO) 0.4 10^3/uL (0.0-0.7); EOSINOPHILS % (AUTO) 5.5 %; HGB - HEMOGLOBIN 13.2 g/dL (12.0-16.0); LYMPHOCYTES # (AUTO) 2.4 10^3/uL (1.5-3.5); LYMPHOCYTES % (AUTO) 33.1 %; MEAN CORPUSCULAR HEMOGLOBIN 29.8 pg (27.0-31.0); MONOCYTES # (AUTO) 0.4 10^3/uL (0.0-1.0); MONOCYTES % (AUTO) 6.2 %; NEUTROPHILS # (AUTO) 3.9 10^3/uL (1.5-6.6); NEUTROPHILS % (AUTO) 54.5 %; PLT - PLATELET COUNT 335 10^3/uL (130-450); RED BLOOD COUNT 4.43 10^6/uL (4.20-5.40); RED CELL DISTRIBUTION WIDTH 12.7 % (12.0-15.0); WHITE BLOOD COUNT 7.1 x10^3/uL (4.8-10.8)
[2019-10-26 15:14] LABS: ALBUMIN 4.3 g/dL (3.2-5.5); ALBUMIN/GLOBULIN RATIO 1.1 (1.0-2.2); BILIRUBIN,TOTAL 0.4 mg/dL (0.2-1.0); CALCIUM 9.3 mg/dL (8.5-10.3); CREATININE 0.7 mg/dL (0.4-1.0); TOTAL PROTEIN 8.1 g/dL (6.7-8.2)
--- NOTE | 2019-10-26 15:43 | ED Physician Documentation ---
History of Present Illness - Stated complaint Stated Complaint: ABD PX - Chief complaint Chief Complaint: Abd Pain - History obtained from History obtained from: Patient - History of Present Illness Timing: Today Pain level max: 0 Pain level now: 0 - Additonal information Additional information: 29-year-old female sent to the emergency department in the middle of a cardiac stress test today as the nucleotide appeared to be in her colon. Patient states that she did have a syncopal event last night which is not unusual for her. She states she was asleep and when she stood up she got lightheaded dizzy and passed out. She has passed out several times in the past and is been told that she has a sensitive vagus nerve. Has been worked up for this extensively in the past. Denies any chest pain, shortness of breath, rectal bleeding. Currently feels normal. Nothing makes this better or worse Review of Systems Constitutional: denies: Fever, Chills Nose: denies: Rhinorrhea / runny nose, Congestion GI: denies: Vomiting, Diarrhea Skin: denies: Rash Musculoskeletal: denies: Neck pain, Back pain Neurologic: denies: Headache, Head injury, LOC PD PAST MEDICAL HISTORY - Past Medical History Cardiovascular: None Respiratory: None Neuro: None Endocrine/Autoimmune: None GI: Ulcers, Hemorrhoids ATTENDANT CHILD ACTIVITY: Endometriosis : None Psych: Depression, Anxiety, Panic attacks, ADD/ADHD, Post traumatic stress disorder Musculoskeletal: None Derm: None - Past Surgical History Past Surgical History: Yes General: Cholecystectomy, Other /ATTENDANT CHILD ACTIVITY: Hysterectomy - Present Medications Home Medications: Ambulatory Orders Medication Instructions Recorded Confirmed Methylphenidate HCl 27 mg PO DAILY 07/18/19 07/18/19 [Methylphenidate ER] estradioL [Estrace] 2 mg PO QPM 07/18/19 07/18/19 Methylphenidate [Ritalin] 5 mg PO DAILY 10/25/19 10/25/19 - Allergies Allergies/Adverse Reactions: Allergies Allergy/AdvReac Type Severity Reaction Status Date / Time banana Allergy Respiratory Verified 10/26/19 13:56 latex Allergy Itching Verified 10/26/19 13:56 Sulfa (Sulfonamide Allergy Anaphylaxis Verified 10/26/19 13:56 Antibiotics) - Social History Does the pt smoke?: No Smoking Status: Never smoker Does the pt drink ETOH?: No Does the pt have substance abuse?: No - Immunizations Immunizations are current?: Yes - POLST Patient has POLST: No PD ED PE NORMAL - Vitals Vital signs reviewed: Yes - General General: Alert and oriented X 3, No acute distress, Well developed/nourished - HEENT HEENT: PERRL - Neck Neck: Supple, no meningeal sign - Cardiac Cardiac: RRR, Strong equal pulses - Respiratory Respiratory: No respiratory distress, Clear bilaterally - Abdomen Abdomen: Soft, Non tender, Non distended - Derm Derm: Warm and dry - Extremities Extremities: No edema, No calf tenderness / cord - Neuro Neuro: Alert and oriented X 3, apprenticeship consultant 2-12 intact, No motor deficit, No sensory deficit, Normal speech - Psych Psych: Normal mood, Normal affect Results - Vitals Vitals: Vital Signs - 24 hr 10/26/19 13:56 Temperature 36.5 C Heart Rate 69 Respiratory 14 Rate Blood Pressure 126/86 H O2 Saturation 99 Oxygen O2 Source Room air - EKG (time done) 1417 Rate: Rate (enter#) (61) Rhythm: NSR [place]: Normal Intervals: Normal [place] QRS: Normal Ischemia: Normal ST segments - Labs Labs: Laboratory Tests 10/26/19 10/26/19 10/26/19 14:53 14:53 14:53 WBC 7.1 RBC 4.43 Hgb 13.2 Hct 41.2 MCV 93.0 MCH 29.8 MCHC 32.0 RDW 12.7 Plt Count 335 MPV 10.0 Neut # (Auto) 3.9 Lymph # (Auto) 2.4 [place] # (Auto) 0.4 Eos # (Auto) 0.4 Baso # (Auto) 0.0 Absolute Nucleated RBC 0.00 Nucleated RBC % 0.0 Sodium 139 Potassium 3.8 Chloride 100 L Carbon Dioxide 27 Anion Gap 12.0 BUN 14 Creatinine 0.7 Estimated GFR (MDRD) 98 Glucose 83 Calcium 9.3 Total Bilirubin 0.4 AST 26 ALT 49 Alkaline Phosphatase 55 Troponin I High Sens 43.4 H* Total Protein 8.1 Albumin 4.3 Globulin 3.8 Albumin/Globulin Ratio 1.1 Lipase 107 H PD MEDICAL DECISION MAKING - ED course Complexity details: reviewed old records, reviewed results, re-evaluated patient, considered differential, d/w patient ED course: No acute emergency medical condition at this time. Laboratory testing is stable. EKG does not show any acute abnormalities. She is asymptomatic. She will have the second half of her nuclear medicine stress test immediately upon discharge from the emergency department. Has a longstanding history of syncope in the past. Normal work-ups. Patient counseled regarding signs and symptoms for which I believe and urgent re-evaluation would be necessary. Patient with good understanding of and agreement to plan and is comfortable going home at this time This document was made in part using voice recognition software. While efforts are made to proofread this document, sound alike and grammatical errors may occur. Radiology was contacted by Dr. Merida and they state that the contrast material in the colon is "a normal variant". Departure - Departure Disposition: 01 Home, Self Care Clinical Impression: Syncope Qualifiers: Syncope type: vasovagal syncope Qualified Code(s): R55 - Syncope and collapse Condition: Good Instructions: ED Syncope Vasovagal Follow-Up: PALMA WHITING [Primary Care Provider] - Within 1 week Comments: Return if you worsen. You are to be returned to nuclear medicine today to have the second portion of your stress test. Follow-up with your doctor for further care.
== END 2019-10-26 15:57 | disposition home or self-care (01) ==
LOC: ED 13:41
DX: R55 Syncope and collapse (principal); R07.9 Chest pain, unspecified; R03.0 Elevated blood-pressure reading, without diagnosis of hypertension
CPT/HCPCS: 36415; 78452; 80053; 83690; 84484; 85025; 93005; 93017; 99284; A9500; J2785

== ENCOUNTER 2019-11-13 15:32 | Observation (INO) | payer OTHER ==
[2019-11-13] MEDS ORDERED: SODIUM CHLORIDE 0.9% 1,000 ML IV ONE (15:49)
[2019-11-13] MEDS ORDERED: ONDANSETRON 4 MG/2 ML VIAL IVP STA ×2 (15:49→16:44)
[2019-11-13] MEDS ORDERED: KETOROLAC 30 MG/ML VIAL IVP STA (15:49)
--- NOTE | 2019-11-13 15:51 | ED Physician Documentation ---
PD HPI NVD - Stated complaint Stated Complaint: N/V/D, DIFFICULTY BREATHING - Chief complaint Chief Complaint: Abd Pain - History obtained from History obtained from: Patient (29-year-old woman who has recurrent syncope, recent depression. Her son was sick a few days ago with vomiting and now she acutely started vomiting today with mild left-sided abdominal pain. She has chronic recurrent syncope and this is worse today. No diarrhea. She feels tingly and short of breath. No fevers. No recent travel.) - History of Present Illness Timing - onset: Today Review of Systems Constitutional: reports: Fatigue. denies: Fever, Chills Nose: denies: Rhinorrhea / runny nose, Congestion Throat: denies: Sore throat Cardiac: denies: Chest pain / pressure, Palpitations Respiratory: reports: Dyspnea. denies: Cough GI: reports: Abdominal Pain, Nausea, Vomiting. denies: Constipation, Diarrhea PD PAST MEDICAL HISTORY - Past Medical History Cardiovascular: None Respiratory: None Neuro: None Endocrine/Autoimmune: None GI: Ulcers, Hemorrhoids CHARCOAL [employer] KILN: Endometriosis : None Psych: Depression, Anxiety, Panic attacks, ADD/ADHD, Post traumatic stress disorder Musculoskeletal: None Derm: None - Past Surgical History Past Surgical History: Yes General: Cholecystectomy, Other /CHARCOAL [employer] KILN: Hysterectomy - Present Medications Home Medications: Ambulatory Orders Medication Instructions Recorded Confirmed estradioL [Estrace] 2 mg PO QPM 07/18/19 07/18/19 Escitalopram [Lexapro] mg PO DAILY 11/13/19 Loratadine [Claritin] 10 mg PO 11/13/19 cloNIDine [Catapres] mg PO ONCE 11/13/19 - Allergies Allergies/Adverse Reactions: Allergies Allergy/AdvReac Type Severity Reaction Status Date / Time banana Allergy Respiratory Verified 10/26/19 13:56 latex Allergy Itching Verified 10/26/19 13:56 Sulfa (Sulfonamide Allergy Anaphylaxis Verified 10/26/19 13:56 Antibiotics) - Social History Does the pt smoke?: No Smoking Status: Never smoker Does the pt drink ETOH?: No Does the pt have substance abuse?: No - Immunizations Immunizations are current?: Yes - POLST Patient has POLST: No PD ED PE NORMAL - Vitals Vital signs reviewed: Yes (Tachycardic) - General General: Alert and oriented X 3, No acute distress - HEENT HEENT: PERRL, EOMI - Neck Neck: Supple, no meningeal sign, No bony TTP - Cardiac Cardiac: Other (Tachycardic and regular without murmur) - Respiratory Respiratory: No respiratory distress, Clear bilaterally - Abdomen Abdomen: Soft, Non tender - Back Back: No CVA TTP, No spinal TTP - Derm Derm: Normal color, Warm and dry - Extremities Extremities: No edema, No calf tenderness / cord - Neuro Neuro: Alert and oriented X 3, Normal speech Results - Vitals Vitals: Vital Signs - 24 hr 11/13/19 11/13/19 11/13/19 15:36 16:46 17:46 Temperature 36.8 C Heart Rate 117 H 92 101 H Respiratory 18 16 12 Rate Blood Pressure 114/85 H 125/75 143/99 H O2 Saturation 99 97 98 11/13/19 11/13/19 18:46 19:18 Temperature Heart Rate 93 99 Respiratory 14 14 Rate Blood Pressure 124/66 130/72 O2 Saturation 95 94 Oxygen O2 Source Room air - EKG (time done) 1549 Rate: Rate (enter#) (87) Rhythm: NSR [place]: Normal Intervals: Normal OK QRS: Normal Ischemia: Normal ST segments Computer interpretation: Agree with computer - Labs Labs: Laboratory Tests 11/13/19 11/13/19 11/13/19 15:52 15:52 15:52 WBC 11.2 H RBC 4.52 Hgb 13.7 Hct 41.6 MCV 92.0 MCH 30.3 MCHC 32.9 RDW 12.8 Plt Count 312 MPV 10.1 Neut # (Auto) 9.4 H Lymph # (Auto) 0.9 L Harris # (Auto) 0.6 Eos # (Auto) 0.1 Baso # (Auto) 0.0 Absolute Nucleated RBC 0.00 Nucleated RBC % 0.0 Sodium 138 Potassium 3.7 Chloride 98 L Carbon Dioxide 26 Anion Gap 14.0 H BUN 16 Creatinine 0.9 Estimated GFR (MDRD) 73 L Glucose 112 H Calcium 9.1 Total Bilirubin 0.6 AST 27 ALT 34 Alkaline Phosphatase 52 Troponin I High Sens 4.0 Total Protein 8.0 Albumin 4.4 Globulin 3.6 Albumin/Globulin Ratio 1.2 Lipase 44 PD MEDICAL DECISION MAKING - ED course ED course: 29-year-old woman presents with what is probably gastroenteritis, her daughter is also sick with vomiting and previously her son was sick with vomiting but she also has chest pain. And there is no diarrhea. Recently after an ICU admission had some elevated troponins which trended down and this was followed by a stress test which had some arrhythmias but no evidence of reversible ischemia on nuclear study. Today her chest pain and her vomiting are difficult to control. But her troponin has trended down into the normal range which is reassuring. She was still nauseous and vomiting after 3 doses of antiemetics. Spoke with Dr. Tineo for observation at 7:20 PM. This is reasonable given intractable vomiting despite 3 doses of antiemetics. Still has chest pain but given her recent history my suspicion for a coronary insult is low. PE is considered but she really has no risk factors and had a negative PET scan just a couple of weeks ago. Departure - Departure Disposition: ED Place in Observation Clinical Impression: Atypical chest pain Vomiting Qualifiers: Vomiting type: unspecified Vomiting Intractability: intractable Nausea presence: with nausea Qualified Code(s): R11.2 - Nausea with vomiting, unspecified Condition: Stable
[2019-11-13 15:58] LABS: BASOPHILS % (AUTO) 0.2 %; EOSINOPHILS # (AUTO) 0.1 10^3/uL (0.0-0.7); EOSINOPHILS % (AUTO) 1.3 %; HGB - HEMOGLOBIN 13.7 g/dL (12.0-16.0); LYMPHOCYTES # (AUTO) 0.9 10^3/uL (1.5-3.5); LYMPHOCYTES % (AUTO) 8.4 %; MEAN CORPUSCULAR HEMOGLOBIN 30.3 pg (27.0-31.0); MEAN CORPUSCULAR HGB CONC 32.9 g/dL (32.0-36.0); MEAN PLATELET VOLUME 10.1 fL (7.9-10.8); MONOCYTES # (AUTO) 0.6 10^3/uL (0.0-1.0); MONOCYTES % (AUTO) 5.4 %; NEUTROPHILS # (AUTO) 9.4 10^3/uL (1.5-6.6); NEUTROPHILS % (AUTO) 84.3 %; PLT - PLATELET COUNT 312 10^3/uL (130-450); RED BLOOD COUNT 4.52 10^6/uL (4.20-5.40); RED CELL DISTRIBUTION WIDTH 12.8 % (12.0-15.0); WHITE BLOOD COUNT 11.2 x10^3/uL (4.8-10.8)
[2019-11-13 16:11] LABS: ALBUMIN 4.4 g/dL (3.2-5.5); ALBUMIN/GLOBULIN RATIO 1.2 (1.0-2.2); BILIRUBIN,TOTAL 0.6 mg/dL (0.2-1.0); CALCIUM 9.1 mg/dL (8.5-10.3); CREATININE 0.9 mg/dL (0.4-1.0)
[2019-11-13] MEDS ORDERED: MORPHINE 2 MG/ML CARPUJECT IVP STA (16:33)
[2019-11-13] MEDS ORDERED: PROMETHAZINE INJ 25 MG in SODIUM CHLORIDE 0.9% 50 ML IV STA (17:02)
[2019-11-13] MEDS ORDERED: LIDOCAINE VISCOUS 2% 15 ML UDC MM STA (17:38)
[2019-11-13] MEDS ORDERED: METOCLOPRAMIDE 10 MG/2 ML VIAL IVP STA (17:38)
[2019-11-13] MEDS ORDERED: MAG HYDROX/AL HYDROX/SIMETH 30 ML UDC PO STA (17:38)
[2019-11-13] MEDS ORDERED: HYDROmorphone 1 MG/ML CARPUJECT IVP STA ×2 (18:06→19:10)
--- NOTE | 2019-11-13 19:05 | XRAY Report ---
Reason: chest pain Procedure Date: 11/13/2019 Accession Number: [id number] / [id number] Procedure: XR - Chest 2 View X-Ray CPT Code: 34535 Final Report FULL RESULT: EXAM: CHEST RADIOGRAPHY EXAM DATE: 11/13/2019 06:34 PM. CLINICAL HISTORY: Chest pain. COMPARISON: CHEST ANGIO 10/25/2019 7:40 PM. TECHNIQUE: 2 views. FINDINGS: Lungs/Pleura: No focal opacities evident. No pleural effusion. No pneumothorax. Normal volumes. Mediastinum: Heart and mediastinal contours are unremarkable. Other: None. IMPRESSION: Normal 2-view chest radiography. RADIA
[2019-11-13] MEDS ORDERED: SODIUM CHLORIDE FLUSH 0.9% 10 ML SYRINGE IVP PRN (19:21)
[2019-11-13] MEDS ORDERED: ACETAMINOPHEN 325 MG TABLET PO PRN (19:21)
[2019-11-13] MEDS ORDERED: MORPHINE 2 MG/ML CARPUJECT IVP PRN (19:21)
[2019-11-13] MEDS ORDERED: ONDANSETRON 4 MG/2 ML VIAL IVP PRN (19:21)
--- NOTE | 2019-11-13 19:34 | HISTORY & PHYSICAL EXAMINATION ---
Chief Complaint - Chief Complaint Chief Complaint: Nause and vomiting. History of Present Illness - Admitted From Admitted From:: Home - History Obtained From Records Reviewed: Yes History obtained from: Patient, ER Physician, EMR Exam Limitations: Patient is lethargic. - History of Present Illness HPI Comment/Other: This is a 29-year-old female with a past medical history significant for depression and recent suicide attempt who presents today complaining of nausea and vomiting. She states her symptoms began abruptly today and she had multiple episodes of vomiting. She states she had developed chest pain prior to the onset of vomiting. The pain is sharp and located centrally. It is nonradiating. Her chest is tender to palpation. She also reports associated dyspnea. He denies any abdominal pain or diarrhea. She denies fever but does report chills. She states both of her children also have similar symptoms of nausea and vomiting. She was admitted last month after overdosing on clonidine and a suicide attempt. She had elevated troponins at that time and this was followed up by's stress test. The exercise portion was concerning for ischemia given she had T wave changes. She then underwent a nuclear stress test which did not show ST segment or T wave changes. He has been referred to cardiology a nd her appointment is this week. In the emergency department, she is on to be afebrile with a temperature of 36.8 C. She was tachycardic with a heart rate of 117. Her blood pressure was 114/85. She was not tachypneic and saturating well on room air. Labs were unremarkable except for a white count 11.2 with a left shift. Initial troponin is negative. Chest x-ray is unremarkable. Her EKG showed a normal sinus rhythm without ischemic changes. She was given morphine IV for her pain as well as Zofran and Phenergan for her nausea. Despite multiple doses of antiemetics, she continued to have persistent nausea and vomiting. Medicine was then consulted for admission. 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 Reports no other family history. Living arrangement: At home Living Situation: With family Social History Notes: She lives at home with her and 2 children. She denies smoking, alcohol use. - Substance History Use: Uses substance without health or social issues: NONE - POLST Patient has POLST: No Meds/Allgy - Home Medications Home Medications: Ambulatory Orders Medication Instructions Recorded Confirmed estradioL [Estrace] 2 mg PO QPM 07/18/19 07/18/19 Escitalopram [Lexapro] mg PO DAILY 11/13/19 Loratadine [Claritin] 10 mg PO 11/13/19 cloNIDine [Catapres] mg PO ONCE 11/13/19 - Allergies Allergies/Adverse Reactions: Allergies Allergy/AdvReac Type Severity Reaction Status Date / Time banana Allergy Respiratory Verified 10/26/19 13:56 latex Allergy Itching Verified 10/26/19 13:56 Sulfa (Sulfonamide Allergy Anaphylaxis Verified 10/26/19 13:56 Antibiotics) Review of Systems - Constitutional Constitutional: reports: Fatigue, Chills, Malaise, Weakness, Poor appetite. denies: Fever - Cardiovascular Cariovascular: reports: Chest pain. denies: Exertional dyspnea, Decr. exercise tolerance - Respiratory Respiratory: reports: SOB at rest. denies: Cough - Gastrointestinal Gastrointestinal: reports: Nausea, Vomiting. denies: Abdominal pain, Diarrhea - Integumentary Integumentary: denies: Rash - Neurological Neurological: reports: General weakness. denies: Focal weakness - Psychiatric Psychiatric: denies: Suicidal - All Other Systems All Other Systems: reports: Reviewed and negative Prior Level of Functionality: She is independent with her ADLs. Exam - Vital Signs Reviewed Vital Signs: Yes Vital Signs: Vital Signs x48h Temp Pulse Resp BP Pulse Ox 11/13/19 19:18 99 14 130/72 94 11/13/19 18:46 93 14 124/66 95 11/13/19 17:46 101 H 12 143/99 H 98 11/13/19 16:46 92 16 125/75 97 11/13/19 15:36 36.8 C 117 H 18 114/85 H 99 - Physical Exam General Appearance: positive: No acute distress, Alert, Lethargic Eyes Bilateral: positive: Normal inspection, Conjunctivae nml ENT: positive: ENT inspection nml, No signs of dehydration. negative: Dry mucous membranes Neck: positive: Nml inspection Respiratory: positive: No respiratory distress. negative: Chest non-tender (Chest is tender to palpation over the sternum.), Wheezes, Rales, Rhonchi Cardiovascular: positive: No murmur, Tachycardia. negative: Irregularly irregular, Systolic murmur, Diastolic murmur Abdomen: positive: Non-tender, No distention. negative: Tenderness, Guarding, Rebound Skin: positive: No rash, Warm Extremities: positive: Full ROM, No pedal edema Neurologic/Psychiatric: positive: Oriented x3, Other (No focal motor deficits.). negative: Disoriented to person, Disoriented to place, Disoriented to time Conclusion/Plan - Problem List (1) Intractable nausea and vomiting Conclusion/Plan: Spikes likely secondary to gastroenteritis given she has for members with similar symptoms. Unfortunately despite multiple doses of antiemetics emergency room, she continues to vomit. Abdominal exam is benign and therefore we will hold off on imaging at the moment. We will continue with Zofran and Compazine IV for her nausea. Lactated Ringer's for IV hydration. We will start her on a clear liquid diet advance as tolerated. If her nausea and vomiting persists or she develops abdominal pain, will obtain a CT of the abdomen and pelvis. (2) Chest pain Conclusion/Plan: Suspect this secondary to her nausea and vomiting or costochondritis given her chest pain is reproducible. She did have elevated troponins during her prior admission when she overdosed on clonidine. She did undergo a stress test and the exercise portion was concerning for ischemia given she had T wave changes. The nuclear portion was not suggestive of ischemia. She has been referred to cardiology but not yet been evaluated. Her EKG today does not show ischemic changes. Her initial troponin is negative. We will trend her troponin. We will start her on Toradol as needed as well as Protonix IV. (3) Depression Conclusion/Plan: She has history of depression and was admitted last month after intentional overdose on clonidine. She currently denies any suicidal ideations. We will resume her Zoloft and Lexapro once the dosing is confirmed by pharmacy. Qualifiers: Depression Type: major depressive disorder Major depression recurrence: recurrent Active/Remission status: in partial remission Qualified Code(s): F33.41 - Major depressive disorder, recurrent, in partial remission - Lab Results Lab results reviewed: Yes Fish Bones: 11/13/19 15:52 11/13/19 15:52 - Diagnostic Imaging Results Diagnostic Imaging Results: positive: Final report reviewed - EKG Results EKG Interpreted Independently: Yes EKG Comparison: Unchanged from prior EKG EKG Findings: Her EKG reveals a normal sinus rhythm without ischemic changes. Core Measures - Anticipated LOS I expect patient to be DC'd or transferred within 96 hours.: Yes - Issues Hospital Issues and Management Plan: 29-year-old female admitted under observation for intractable nausea vomiting. Will hydrate with IV fluids and administer IV anti-medics. We will trend her troponin given her chest pain and elevated troponin in the past with a stress test that was moderately concerning for ischemia. - DVT/VTE - Prophylaxis VTE/DVT Device ordered at admit?: Yes VTE/DVT Prophylaxis med ordered at admit?: Yes
[2019-11-13] MEDS: LACTATED RINGERS 1,000 ML IV SCH (20:26)
[2019-11-13] MEDS: PROCHLORPERAZINE 10 MG/2 ML VIAL IVP PRN (21:26)
[2019-11-14] MEDS: SODIUM CHLORIDE FLUSH 0.9% 10 ML SYRINGE IVP SCH ×2 (00:18→08:54)
[2019-11-14 04:46] LABS: BILIRUBIN,URINE NEGATIVE (NEGATIVE); GLUCOSE, URINE (UA) NEGATIVE (NEGATIVE); KETONES,URINE (UA) NEGATIVE (NEGATIVE); LEUKOCYTE ESTERASE, URINE SMALL (NEGATIVE); NITRITE,URINE NEGATIVE (NEGATIVE); OCCULT BLOOD,URINE NEGATIVE (NEGATIVE); PROTEIN,URINE NEGATIVE (NEGATIVE); UROBILINOGEN,URINE 1 (NORMAL) E.U./dL (NORMAL)
[2019-11-14 04:52] LABS: CLARITY,URINE SL. CLOUDY (CLEAR)
[2019-11-14 04:57] LABS: BACTERIA,URINE Few /HPF (None Seen); RBC,URINE None Seen /HPF (0-5); SQUAMOUS EPITHELIAL CELL,UR FEW Squamous (<= Few)
[2019-11-14 05:17] LABS: BASOPHILS % (AUTO) 0.2 %; EOSINOPHILS % (AUTO) 0.2 %; HGB - HEMOGLOBIN 12.4 g/dL (12.0-16.0); LYMPHOCYTES # (AUTO) 0.3 10^3/uL (1.5-3.5); LYMPHOCYTES % (AUTO) 5.2 %; MEAN CORPUSCULAR HGB CONC 32.5 g/dL (32.0-36.0); MEAN CORPUSCULAR VOLUME 92.3 fL (81.0-99.0); MEAN PLATELET VOLUME 10.3 fL (7.9-10.8); MONOCYTES # (AUTO) 0.3 10^3/uL (0.0-1.0); MONOCYTES % (AUTO) 5.6 %; NEUTROPHILS # (AUTO) 4.9 10^3/uL (1.5-6.6); NEUTROPHILS % (AUTO) 88.6 %; PLT - PLATELET COUNT 233 10^3/uL (130-450); RED BLOOD COUNT 4.14 10^6/uL (4.20-5.40); WHITE BLOOD COUNT 5.6 x10^3/uL (4.8-10.8)
[2019-11-14 05:48] LABS: CALCIUM 8.3 mg/dL (8.5-10.3); CREATININE 0.6 mg/dL (0.4-1.0); MAGNESIUM 1.9 mg/dL (1.7-2.8); PHOSPHORUS 3.6 mg/dL (2.5-4.6)
[2019-11-14] MEDS: LACTATED RINGERS 1,000 ML IV SCH (06:13)
[2019-11-14] MEDS ORDERED: PANTOPRAZOLE 40 MG VIAL IVP SCH (07:00)
[2019-11-14 08:20] VITALS: BP 140/93
[2019-11-14] MEDS: KETOROLAC 30 MG/ML VIAL IVP PRN ×2 (08:54→14:21)
[2019-11-14] MEDS ORDERED: ENOXAPARIN 40 MG/0.4 ML SYRINGE SUBQ SCH (09:00)
--- NOTE | 2019-11-14 11:56 | PHARMACY PROGRESS NOTE ---
- Best Possible Medication History Admit Date and Time: 11/13/191920 Processed by: Pharmacy Medication History completed: In progress (Awaiting secondary source (fax request made from patient's PCP facility); no insurance reconrds available to confirm, called patient's [facility] pharmacy 3 xs-line drops no answer) Patient Interview: Completed As the person ultimately responsible for medication therapy, providers are able to order a medication from an existing home medication list in [facility] via the "Reconcile Routine" prior to Confirmation of that medication by lead performance support analyst. Such practice is discouraged except when the physician, in their clinical judgment, deems that a medical need exists for a medication without regard to previous use.
--- NOTE | 2019-11-14 12:21 | Discharge Plan ---
Discharge Plan Problem Reviewed?: Yes Disposition: Home, Self Care Condition: Good Prescriptions: Ondansetron Odt [Zofran] 4 mg TL Q6H PRN #10 tablet PRN Reason: Nausea / Vomiting Diet: Regular Activity Restrictions: Activity as Tolerated Health Concerns: Nausea and vomiting Gastritis Chest pain Plan of Treatment: Continue to rest at home Take Zofran if needed for ongoing nausea Eat soft foods and drink plenty of fluids Care Goals: Prevent vomiting by staying hydrated and controlling your nausea Prevent ED visits or hospital stays Follow up as planned with Cardiology See your primary care in one week Assessment: You were admitted to the hospital multiple episodes of vomiting, shortness of breath, and chest pain which you described as dull, located centrally. Your symptoms improved and your cardiac enzymes remained negative. Social work stopped by to make sure your needs were being met since your recent admission. You are medically stable, tolerating meals and are free to return home. No Smoking: If you smoke, Please STOP! Call for help. Follow-up with: PALMA WHITING [Primary Care Provider] -
--- NOTE | 2019-11-14 12:37 | DISCHARGE SUMMARY ---
Discharge Summary Admit Date: 11/13/19 Discharge Date: 11/14/19 Discharging Provider: JUDITH Pelayo Primary Care Provider: aSrah Naylor Code Status: Attempt Resuscitation Condition at Discharge: Good Discharge Disposition: 01 Home, Self Care - DIAGNOSES Admission Diagnoses: Intractable nausea and vomiting Chest pain Depression Discharge Diagnoses with Status of Each Condition: Intractable nausea and vomiting-resolved, tolerating meals Chest pain-Resolved, following up with Cardiology as planned from prior cardiac testing Gastroenteritis-New on this admission, stable Abdominal pain-Improved, no narcotics given Shortness of breath-Resolved Dehydration-Resolved ADHD-Chronic, no changes to home meds Depression-Chronic, no changes to home meds - HPI History of Present Illness: HPI per Dr. Coe: This is a 29-year-old female with a past medical history sig nificant for depression and recent suicide attempt who presents today complaining of nausea and vomiting. She states her symptoms began abruptly today and she had multiple episodes of vomiting. She states she had developed chest pain prior to the onset of vomiting. The pain is sharp and located c entrally. It is nonradiating. Her chest is tender to palpation. She also reports associated dyspnea. He denies any abdominal pain or diarrhea. She denies fever but does report chills. She states both of her children also have similar symptoms of nausea and vomiting. She was admitted last month after overdosing on clonidine and a suicide attempt. She had elevated troponins at that time and this was followed up by's stress test. The exercise portion was concerning for ischemia given she had T wave changes. She then underwent a nuclear stress test which did not show ST segment or T wave changes. He has been referred to cardiology and her appointment is this week. In the emergency department, she is on to be afebrile with a temperature of 36.8 C. She was tachycardic with a heart rate of 117. Her blood pressure was 114/85. She was not tachypneic and saturating well on room air. Labs were unremarkable except for a white count 11.2 with a left shift. Initial troponin is negative. Chest x-ray is unremarkable. Her EKG showed a normal sinus rhythm without ischemic changes. She was given morphine IV for her pain as well as Zofran and Phenergan for her nausea. Despite multiple doses of antiemetics, she continued to have persistent nausea and vomiting. Medicine was then consulted for admission. - HOSPITAL COURSE Hospital Course: The patient was admitted to the hospital for observation after multiple episodes of vomiting, shortness of breath, and chest pain which you described as dull, located centrally. Your symptoms improved and your cardiac enzymes remained negative. Social work stopped by to make sure your needs were being met since your recent admission. You are medically stable, tolerating meals and are free to return home. - ALLERGIES Allergies/Adverse Reactions: Allergies Allergy/AdvReac Type Severity Reaction Status Date / Time banana Allergy Respiratory Verified 10/26/19 13:56 latex Allergy Itching Verified 10/26/19 13:56 Sulfa (Sulfonamide Allergy Anaphylaxis Verified 10/26/19 13:56 Antibiotics) - MEDICATIONS Home Medications: Ambulatory Orders Medication Instructions Recorded Confirmed estradioL [Estrace] 2 mg PO QPM 07/18/19 07/18/19 Escitalopram [Lexapro] 5 mg PO DAILY 11/13/19 11/14/19 Loratadine [Claritin] 10 mg PO DAILY 11/13/19 11/14/19 cloNIDine [Catapres] 0.2 mg PO DAILY 11/13/19 11/14/19 Ondansetron Odt [Zofran] 4 mg TL Q6H PRN #10 tablet 11/14/19 Sertraline [Zoloft] 75 mg PO DAILY 11/14/19 11/14/19 - PHYSICAL EXAM AT DISCHARGE General Appearance: positive: No acute distress, Alert Eyes Bilateral: positive: PERRL, No lid inflammation ENT: positive: Pharyngeal erythema, Dry mucous membranes Neck: positive: No JVD, Trachea midline Respiratory: positive: Chest non-tender, No respiratory distress, Breath sounds nml Cardiovascular: positive: Regular rate & rhythm, No gallop, Systolic murmur Peripheral Pulses: positive: 2+ Abdomen: positive: Non-tender, Nml bowel sounds, Other (rounded, soft) Back: positive: Nml inspection Skin: positive: Color nml, No rash, Warm, Dry Extremities: positive: Non-tender, Full ROM, Nml appearance, No pedal edema, Other (chronic BLE swelling, no pitting edema) Neurologic/Psychiatric: positive: Oriented x3, CN's nml (2-12), Motor nml, Sensation nml, Depressed mood/affect (flat, no suicidal ideations) Reflexes: Bicep (R): 3+, Bicep (L): 3+ - LABS Result Diagrams: 11/14/19 04:56 11/14/19 04:56 - FOLLOW UP Follow Up: Continue all of your regular medications See Cardiology as scheduled See your primary care provider within one week Return to the ED if you have chest pain again A work note was provided - TIME SPENT Time Spent in Discharge (Minutes): 45
[2019-11-14] MEDS: PROCHLORPERAZINE 10 MG/2 ML VIAL IVP PRN (13:31)
== END 2019-11-14 14:33 | disposition home or self-care (01) ==
LOC: ED 15:32 → MS3 19:21
PROVIDERS: ADMIT Internal Medicine; ATTEND Nurse Practitioner
DX: K52.9 Noninfective gastroenteritis and colitis, unspecified (principal); R07.9 Chest pain, unspecified; E86.0 Dehydration; R06.02 Shortness of breath; F33.41 Major depressive disorder, recurrent, in partial remission; F90.9 Attention-deficit hyperactivity disorder, unspecified type; F43.10 Post-traumatic stress disorder, unspecified; F41.0 Panic disorder [episodic paroxysmal anxiety]; Z91.5 Personal history of self-harm
CPT/HCPCS: 36415; 71046; 80048; 80053; 81001; 83690; 83735; 84100; 84484; 85025; 87086; 93005; 96361; 96365; 96372; 96375; 96376; 99284; 99285; A9270; G0378; J1170; J1650; J2765; J7040; J7120; 81003

== ENCOUNTER 2022-05-04 12:32 | Emergency (ER) | payer OTHER ==
[2022-05-04 12:42] VITALS: BP 105/61
--- NOTE | 2022-05-04 12:59 | ED Physician Documentation ---
PD HPI UPPER EXT INJURY - Stated complaint Stated Complaint: LEFT ARM PX - Chief complaint Chief Complaint: Ext Problem - History obtained from History obtained from: Patient - Additonal information Additional information: 31-year-old woman with history of depression and gastric sleeve. She is right- handed. She was working heavily on Thursday but not too much outside of the range of normal and developed severe pain radiating from the shoulder down to the elbow and forearm. There was no specific injury. This has never happened before. 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: Hysterectomy - Present Medications Home Medications: Ambulatory Orders Medication Instructions Recorded Confirmed estradioL [Estrace] 2 mg PO QPM 07/18/19 07/18/19 Escitalopram [Lexapro] 5 mg PO DAILY 11/13/19 11/14/19 Loratadine [Claritin] 10 mg PO DAILY 11/13/19 11/14/19 cloNIDine [Catapres] 0.2 mg PO DAILY 11/13/19 11/14/19 Ondansetron Odt [Zofran] 4 mg TL Q6H PRN #10 tablet 11/14/19 Sertraline [Zoloft] 75 mg PO DAILY 11/14/19 11/14/19 - Allergies Allergies/Adverse Reactions: Allergies Allergy/AdvReac Type Severity Reaction Status Date / Time banana Allergy Respiratory Verified 05/04/22 12:56 latex Allergy Itching Verified 05/04/22 12:56 Sulfa (Sulfonamide Allergy Anaphylaxis Verified 05/04/22 12:56 Antibiotics) - Social History Does the pt smoke?: No Smoking Status: Never smoker Does the pt drink ETOH?: No Does the pt have substance abuse?: No - Immunizations Immunizations are current?: Yes - POLST Patient has POLST: No PD ED PE NORMAL - Vitals Vital signs reviewed: Yes - General General: Alert and oriented X 3, No acute distress - Neck Neck: Supple, no meningeal sign, No bony TTP - Extremities Extremities: Other (Diffuse tenderness of the elbow and shoulder with severely limited range of motion of both. She has a lot of pain with flexion at the wrist. Normal sensation throughout the hand and forearm.) - Neuro Neuro: Alert and oriented X 3, Normal speech Results - Vitals Vitals: Vital Signs - 24 hr 05/04/22 12:37 Temperature 36.7 C Heart Rate 80 Respiratory 16 Rate Blood Pressure 105/61 O2 Saturation 98 Oxygen O2 Source Room air PD MEDICAL DECISION MAKING - ED course ED course: 31-year-old woman with onset of left shoulder and arm pain without trauma. X- rays were negative. She does have some weakness especially in flexion at the wrist. Sensation is normal throughout. Early [place] syndrome is considered, and on repeat exam she does have mild winging of the left scapula. She requested a sling but we discussed that she needs to come out of it a few times a day to do range of motion exercises. Departure - Departure Disposition: 01 Home, Self Care Clinical Impression: Shoulder pain Condition: Good Record reviewed to determine appropriate education?: Yes Instructions: ED Acute Pain [facility] Comments: As discussed, the x-rays of your left shoulder and elbow are pretty normal. I do wonder if you might have a brachial neuritis, also known as [place] syndrome. Follow-up with your primary care physician, next available appointment calling tomorrow for follow-up and potential referrals such as neurology for EMG testing and/or physical therapy. Return if worse. Tylenol as needed for pain. ER Forms: Activity restrictions
--- NOTE | 2022-05-04 13:29 | XRAY Report ---
PROCEDURE: Elbow 3 View LT INDICATIONS: shoulder and elbow pain TECHNIQUE: 3 views of the elbow were acquired. COMPARISON: None FINDINGS: Bones: No fractures or dislocations. No suspicious bony lesions. Soft tissues: No elbow joint effusion. No suspicious soft tissue calcifications. IMPRESSION: No evidence acute bony abnormality of the left elbow. If clinical suspicion and/or symptoms persist, further assessment with repeat plain films or advanced imaging (e.g., CT, MRI, or bone scan) may be helpful for further assessment. Reviewed by: Deangelo Alfred MD on 05/04/2022 12:28 PM JAN Approved by: Deangelo Alfred MD on 05/04/2022 12:28 PM JAN Station ID: [id number]
--- NOTE | 2022-05-04 13:30 | XRAY Report ---
PROCEDURE: Shoulder 3 View LT INDICATIONS: shoulder and elbow pain TECHNIQUE: 3 views of the shoulder were acquired. COMPARISON: None. FINDINGS: Bones: No fractures or dislocations. No suspicious bony lesions. Visualized ribs appear intact. Soft tissues: Soft tissue calcifications around the shoulder joint may represent calcific bursitis. IMPRESSION: Question calcific bursitis. No evidence acute bony abnormality of the left shoulder. Reviewed by: Deangelo Alfred MD on 05/04/2022 12:29 PM JAN Approved by: Deangelo Alfred MD on 05/04/2022 12:29 PM JAN Station ID: [id number]
== END 2022-05-04 14:00 | disposition home or self-care (01) ==
LOC: ED 12:32
DX: M25.512 Pain in left shoulder (principal)
CPT/HCPCS: 99282; 99283

== ENCOUNTER 2022-11-08 08:21 | Emergency (ER) | payer OTHER ==
[2022-11-08 08:43] VITALS: BP 110/69
[2022-11-08] MEDS ORDERED: cephALEXin 250 MG CAPSULE PO STA (08:59)
[2022-11-08] MEDS ORDERED: PHENAZOPYRIDINE 100 MG TABLET PO STA (08:59)
[2022-11-08 09:13] LABS: BILIRUBIN,URINE NEGATIVE (NEGATIVE); GLUCOSE, URINE (UA) NEGATIVE (NEGATIVE); KETONES,URINE (UA) NEGATIVE (NEGATIVE); LEUKOCYTE ESTERASE, URINE NEGATIVE (NEGATIVE); NITRITE,URINE NEGATIVE (NEGATIVE); OCCULT BLOOD,URINE NEGATIVE (NEGATIVE); PH,URINE 7.5 PH (5.0-7.5); PROTEIN,URINE NEGATIVE (NEGATIVE); UROBILINOGEN,URINE 1 (NORMAL) E.U./dL (NORMAL)
[2022-11-08 09:14] LABS: CLARITY,URINE CLEAR (CLEAR); HCG UR QUAL NEGATIVE
--- NOTE | 2022-11-08 09:52 | ED Physician Documentation ---
PD HPI FEMALE - Stated complaint Stated Complaint: F - Chief complaint Chief Complaint: UTI - History obtained from History obtained from: Patient - History of Present Illness Timing - onset: Today, Yesterday Timing - duration: Days (1) Timing - details: Abrupt onset, Still present Associated symptoms: Vaginal discharge (mild today), Dysuria, Urinary frequency. No: Fever, Genital sore/lesion, Hematuria Contributing factors: Sexually active. 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 Similar symptoms before: Diagnosis (UTIs) Recently seen: Not recently seen Review of Systems Constitutional: denies: Fever, Chills GI: denies: Abdominal Pain, Nausea, Vomiting : reports: Dysuria, Frequency, Discharge (mild) Musculoskeletal: reports: Back pain (chronic from prior accident) PD PAST MEDICAL HISTORY - Past Medical History Cardiovascular: None Respiratory: None Neuro: None Endocrine/Autoimmune: None GI: Ulcers, Hemorrhoids NIPPLE MAKER: Endometriosis : None Psych: Depression, Anxiety, Panic attacks, ADD/ADHD, Post traumatic stress disorder Musculoskeletal: None Derm: None - Past Surgical History Past Surgical History: Yes General: Cholecystectomy, Gastric surgery (gastric sleeve), Other /NIPPLE MAKER: Hysterectomy - Present Medications Home Medications: Ambulatory Orders Medication Instructions Recorded Confirmed estradioL [Estrace] 2 mg PO QPM 07/18/19 07/18/19 Escitalopram [Lexapro] 5 mg PO DAILY 11/13/19 11/14/19 Loratadine [Claritin] 10 mg PO DAILY 11/13/19 11/14/19 cloNIDine [Catapres] 0.2 mg PO DAILY 11/13/19 11/14/19 Ondansetron Odt [Zofran] 4 mg TL Q6H PRN #10 tablet 11/14/19 Sertraline [Zoloft] 75 mg PO DAILY 11/14/19 11/14/19 Phenazopyridine HCl [Pyridium] 100 mg PO TID PRN #15 tablet 11/08/22 cephALEXin [Keflex] 500 mg PO TID #20 cap 11/08/22 - Allergies Allergies/Adverse Reactions: Allergies Allergy/AdvReac Type Severity Reaction Status Date / Time banana Allergy Respiratory Verified 05/04/22 12:56 latex Allergy Itching Verified 05/04/22 12:56 Sulfa (Sulfonamide Allergy Anaphylaxis Verified 05/04/22 12:56 Antibiotics) - Social History Does the pt smoke?: No Smoking Status: Never smoker Does the pt drink ETOH?: No Does the pt have substance abuse?: No - Immunizations Immunizations are current?: Yes - POLST Patient has POLST: No PD ED PE NORMAL - Vitals Vital signs reviewed: Yes - General General: Alert and oriented X 3, No acute distress, Well developed/nourished - Abdomen Abdomen: Soft, Non tender - Female Female : Deferred - Back Back: No CVA TTP - Derm Derm: Normal color, Warm and dry Results - Vitals Vitals: Vital Signs - 24 hr 11/08/22 08:34 Temperature 36.8 C Heart Rate 80 Respiratory 18 Rate Blood Pressure 110/69 O2 Saturation 99 Oxygen O2 Source Room air - Labs Labs: Laboratory Tests 11/08/22 11/08/22 07:49 08:54 Urine Color YELLOW Urine Clarity CLEAR Urine pH 7.5 Ur Specific [place] 1.020 Urine Protein NEGATIVE Urine Glucose (UA) NEGATIVE Urine Ketones NEGATIVE Urine Occult Blood NEGATIVE Urine Nitrite NEGATIVE Urine Bilirubin NEGATIVE Urine Urobilinogen 1 (NORMAL) Ur Leukocyte Esterase NEGATIVE Ur Microscopic Review NOT INDICATED Urine Culture Comments NOT INDICATED Urine HCG, Qual NEGATIVE C. glabrata (PCR) NEGATIVE C. krusei (PCR) NEGATIVE Key species DNA NEGATIVE T. vaginalis (PCR) NEGATIVE Bact Vaginosis (PCR) POSITIVE A PD Medical Decision Making - ED course Complexity details: reviewed results, considered differential (symptoms c/w uTI. UA however does not look it. Will get vaginal study and start empiric treatment for UTI for now. ), d/w patient Departure - Departure Disposition: 01 Home, Self Care Clinical Impression: Dysuria Condition: Stable Record reviewed to determine appropriate education?: Yes Instructions: ED Dysuria Uncertain Cause Prescriptions: cephALEXin [Keflex] 500 mg PO TID #20 cap Phenazopyridine HCl [Pyridium] 100 mg PO TID PRN #15 tablet PRN Reason: Abdominal Pain Comments: Your symptoms certainly sound like a bladder infection/UTI. Your urine test did not show signs of obvious infection but does not preclude a bladder infection. It does give pause to be sure there are no other causes. We did have you do the vaginal swabs to look for vaginitis instead as a cause of your symptoms. This will result in a day or so and we will call you if there is a need to change antibiotics or treatment based on those. These would be looking for bacterial and yeast vaginitis as well as STDs. Meanwhile we will presume a bladder infection and go with cephalexin and Pyridium 3 times daily as directed. Add Tylenol if needed for pain or discomfort. Stay well-hydrated. I sent your prescriptions to [facility] pharmacy in [place]. Sorry this took a little while and you are late for work. I did write a work n ote for you. Forms: Activity restrictions Discharge Date/Time: 11/08/22 11:05
[2022-11-08 11:54] LABS: BACTERIAL VAGINOSIS DNA POSITIVE (NEGATIVE); CANDIDA GLABRATA DNA NEGATIVE (NEGATIVE); CANDIDA GROUP DNA NEGATIVE (NEGATIVE); CANDIDA KRUSEI DNA NEGATIVE (NEGATIVE); TRICHOMONAS VAGINALIS DNA NEGATIVE (NEGATIVE)
[2022-11-09 00:29] LABS: CHLAMYDIA TRACHOMATIS DNA NEGATIVE (NEGATIVE); NEISSERIA GONORRHOEAE DNA NEGATIVE (NEGATIVE); TRICHOMONAS VAGINALIS DNA NEGATIVE (NEGATIVE)
--- NOTE | 2022-11-09 12:40 | ED Physician Documentation ---
ED Addendum - Addendum Addendum: 11/09/22 12:39 The patient's vaginal studies resulted today showing negative for GC and chlamydia but positive for bacterial vaginitis. I will phone in correction transmit Flagyl 500 twice daily for 7 days to her pharmacy. I tried contacting the patient but only voicemail. I left a message for her to call the ER nonurgently. I will have nursing try to contact her later.
== END 2022-11-08 11:05 | disposition home or self-care (01) ==
LOC: ED 08:21
DX: R30.0 Dysuria (principal); N89.8 Other specified noninflammatory disorders of vagina
CPT/HCPCS: 81003; 81025; 81514; 87491; 87591; 87661; 99283; A9270; 81001; 87086